=== PATIENT | female | born 1945 | race Caucasian/White ===

== ENCOUNTER → 2019-04-05 | Outpatient (CLI) | payer MEDICARE, BC ==
--- NOTE | 2019-04-05 16:07 | BD ---
EXAMINATION TYPE: Axial Bone Density DATE OF EXAM: 04/05/2019 COMPARISON: 2014 CLINICAL HISTORY: Z 78.0 Height: 62.50 Weight: 120 FRAX RISK QUESTIONS: Alcohol (3 or more units per day): no Family History (Parent hip fracture): no Glucocorticoids (More than 3mos): no (Ex: prednisone, prednisolone, methylprednisolone, dexamethasone, and hydrocortisone). History of Fracture in Adulthood: yes, ankle Secondary Osteoporosis: 1. Type 1 Diabetes: no 2. Hyperthyroidism: no 3. Menopause before 45: YES 4. Malnutrition: no 5. Chronic liver disease: no Rheumatoid Arthritis: no Current Tobacco Use: no RISK FACTORS HISTORY OF: Family History of Osteoporosis: not to knowledge of patient Active: yes Diet low in dairy products/other sources of calcium: no Postmenopausal woman: yes Take estrogen and/or progesterone medications: no Lost more than 2 inches in height since high school: no Frequent falls: no Poor Health: no Hyperparathyroidism: no Adrenal Insufficiency: no MEDICATIONS: Prednisone or other steroids: no Thyroid Medications: no Osteoporosis Medications: no Additional Medications: calcium & Vitamin D Additional History: low blood sugar EXAM MEASUREMENTS: Bone mineral densitometry was performed using the [employer] System. Bone mineral density as measured about the Lumbar spine is: ----- L1-L4(G/cm2): 1.105 T Score Values are as follows: ----- L2: 0.2 ----- L3: -0.1 ----- L4: -1.8 ----- L1-L4: -0.6 Bone mineral density has: Increased 5.8% since study of: 09/19/2014 Bone mineral density about the R hip (g/cm2): 0.775 Bone mineral density about the L hip (g/cm2): 0.792 T Score values are as follows: -----R Neck: -1.9 -----L Neck: -1.8 -----R Total: -2.1 -----L Total: -1.6 Bone mineral density has: Decreased -1.2% since study of: 09/19/2014 IMPRESSION: Osteopenia (T Score between -2.5 and -1). There is slightly increased risk of fracture and the patient may be considered for treatment. Re-Screen 2-5 years. NOTE: T-SCORE=SD OF THE YOUNG ADULT MEAN.
--- NOTE | 2019-04-10 09:53 | MM ---
Reason for exam: screening (asymptomatic). Last mammogram was performed 4 years and 7 months ago. History: Patient is postmenopausal. Benign excisional biopsy of the left breast, 2000. Physical Findings: A clinical breast exam by your physician is recommended on an annual basis and results should be correlated with mammographic findings. MG Screening Mammo w CAD Bilateral CC and MLO view(s) were taken. Prior study comparison: September 19, 2014, bilateral MG screening mammo w CAD. April 23, 2013, bilateral digital screening mammo w/CAD. The breast tissue is heterogeneously dense. This may lower the sensitivity of mammography. No significant changes when compared with prior studies. ASSESSMENT: Negative, BI-RAD 1 RECOMMENDATION: Routine screening mammogram of both breasts in 1 year.
== END | disposition home or self-care (01) ==
LOC: RADMAMWWP 13:39
PROVIDERS: ATTEND Family Medicine
DX: Z12.31 Encounter for screening mammogram for malignant neoplasm of breast (principal); M85.80 Other specified disorders of bone density and structure, unspecified site; Z78.0 Asymptomatic menopausal state
CPT/HCPCS: 77067; 77080

== ENCOUNTER 2019-06-21 02:07 | Observation (INO) | payer BC, MEDICARE ==
[2019-06-21 03:19] LABS: Basophils % (A) 1 %; Eosinophils # (A) 0.1 k/uL (0-0.7); Eosinophils % (A) 2 %; HCT 40.1 % (34.0-46.0); HGB 13.6 gm/dL (11.4-16.0); Lymphocytes # (A) 1.5 k/uL (1.0-4.8); Lymphocytes % (A) 32 %; MCHC 33.8 g/dL (31.0-37.0); MCV 85.6 fL (80.0-100.0); Mean Platelet Volume 6.2; Monocytes # (A) 0.3 k/uL (0-1.0); Monocytes % (A) 6 %; Neutrophils # (A) 2.6 k/uL (1.3-7.7); Neutrophils % (A) 57 %; Platelet Count 188 k/uL (150-450); RBC 4.68 m/uL (3.80-5.40); RDW 12.3 % (11.5-15.5); WBC 4.6 k/uL (3.8-10.6)
--- NOTE | 2019-06-21 03:19 | XR ---
EXAMINATION TYPE: XR chest 2V DATE OF EXAM: 06/21/2019 COMPARISON: 05/30/2016 HISTORY: Chest pain TECHNIQUE: Frontal and lateral views of the chest are obtained. FINDINGS: Heart and mediastinum are within normal limits. Lungs are clear. Diaphragm is normal. Ther e are chest leads. Bony thorax is intact. IMPRESSION: No active cardiopulmonary disease. No change.
[2019-06-21 03:29] LABS: INR 0.9 (<1.2); Partial Thromboplastin Time 23.7 sec (22.0-30.0); Prothrombin Time 10.2 sec (9.0-12.0)
--- NOTE | 2019-06-21 03:35 | ED ---
Chest Pain HPI - General Chief Complaint: Chest Pain Stated Complaint: High BP Time Seen by Provider: 06/21/19 02:26 Source: patient Mode of arrival: ambulatory Limitations: no limitations - History of Present Illness Initial Comments: Saundra is a 74-year-old female who presents the ER today for evaluation of burning retrosternal chest discomfort. Patient reports this is been coming and going in waves, this burning discomfort radiates to her bilateral shoulders. He got some mild shortness of breath and chills but denies any fevers nausea or vomiting. She reports these episodes happen at rest without provocation. They resolve spontaneously. She reports she just feels like there is a burning or pressure-like discomfort in her chest that she's having trouble describing. She reports she's never experienced anything like this in the past. Patient does have a history of GERD and states that this discomfort is nothing like acid reflux. - Related Data Home Medications Medication Instructions Recorded Confirmed Ascorbic Acid [Vitamin C] 500 mg PO DAILY 05/30/16 05/30/16 Biotin 5 mg PO HS 05/30/16 05/30/16 Calcium Carbonate [Calcium] 600 mg PO BID 05/30/16 05/30/16 Cholecalciferol [Vitamin D3] 1 tab PO HS 05/30/16 05/30/16 Glucosam/Simone-Msm1/C/Coleman/Bosw 1 tab PO DAILY 05/30/16 05/30/16 [Glucosamine-Chondroitin Tablet] Multivitamins, Thera [Multivitamin] 1 tab PO DAILY 05/30/16 05/30/16 Allergies Allergy/AdvReac Type Severity Reaction Status Date / Time No Known Allergies Allergy Verified 05/30/16 11:52 Review of Systems ROS Statement: Those systems with pertinent positive or pertinent negative responses have been documented in the HPI. ROS Other: All systems not noted in ROS Statement are negative. Past Medical History Past Medical History: Hypertension Additional Past Medical History / Comment(s): MVP,Osteoparosis, hypoglycemia. History of Any Multi-Drug Resistant Organisms: None Reported Past Surgical History: Orthopedic Surgery Additional Past Surgical History / Comment(s): mortons neuroma bilateral feet. Past Psychological History: No Psychological Hx Reported Smoking Status: Never smoker Past Alcohol Use History: Occasional Past Drug Use History: None Reported General Exam - General Exam Comments Initial Comments: Physical Exam GENERAL: Patient is well-developed and well-nourished. Patient is nontoxic and well- hydrated and is in no distress. HENT: Normocephalic, Atraumatic. EYES: PERRL, EOMI PULMONARY: Unlabored respirations. No audible rales rhonchi or wheezing was noted. CARDIOVASCULAR: There is a regular rate and rhythm without any murmurs gallops or rubs. ABDOMEN: Soft and nontender with normal bowel sounds. SKIN: Skin is clear with no lesions or rashes and otherwise unremarkable. : Deferred NEUROLOGIC: Patient is alert and oriented x3. Moving all extremities spontaneously MUSCULOSKELETAL: Normal extremities with adequate strength and full range of motion. No lower extremity swelling or edema. No calf tenderness. PSYCHIATRIC: Normal psychiatric evaluation. Limitations: no limitations Course Vital Signs 06/21/19 06/21/19 02:12 03:16 Temperature 97.9 F Pulse Rate 71 62 Respiratory 18 18 Rate Blood Pressure 168/90 165/90 O2 Sat by Pulse 98 96 Oximetry Chest Pain MDM - MDM KG was obtained to evaluate for chest pain, EKG was obtained at 2:27 AM, rate is 66 rhythm is sinus there is normal axis, there are normal intervals, AL 152, QRS 92, QTc is 417. There are no acute ST elevations or depressions, there is significant movement artifact in the lateral leads but no evidence of acute ischemia or infarction. The patient was seen and evaluated upon arrival emergency department. A 74-year-old female with vague chest discomfort radiating to the bilateral shoulders. This is concerning for cardiac etiology. Initial EKG was nonischemic, chest x-ray was unremarkable and labs were initially unremarkable however patient's continues to have episodes of discomfort. Given the patient's advanced age I do feel she'll benefit from further evaluation by cardiology. Patient initially prefer discharge home however family encouraged her to stay for the day and patient agreed to be admitted for further ACS workup. Disposition Clinical Impression: Chest pain Disposition: ADMITTED IP TO THIS HOSP Condition: Stable Is patient prescribed a controlled substance at d/c from ED?: No
[2019-06-21 03:39] LABS: ALT 28 U/L (9-52); AST 33 U/L (14-36); African American GFR (CKD) >90 (>60 ml/min/1.73 sqM); Albumin 4.2 g/dL (3.5-5.0); Alkaline Phosphatase 47 U/L (38-126); Anion Gap 7 mmol/L; Blood Urea Nitrogen 18 mg/dL (7-17); Calcium 9.3 mg/dL (8.4-10.2); Carbon Dioxide 24 mmol/L (22-30); Chloride 106 mmol/L (98-107); Glucose 99 mg/dL (74-99); Magnesium 1.9 mg/dL (1.6-2.3); Non-African American GFR(CKD) 88 (>60 ml/min/1.73 sqM); Sodium 137 mmol/L (137-145); Total Bilirubin 0.5 mg/dL (0.2-1.3); Total Protein 7.1 g/dL (6.3-8.2)
[2019-06-21] MEDS ORDERED: NITROGLYCERIN SL TABS 0.4 MG TAB SUBLINGUAL PRN (05:09)
--- NOTE | 2019-06-21 08:19 | P.CRDCN ---
History of Present Illness Consult date: 06/21/19 Chief complaint: chest pain History of present illness: This is a pleasant 74-year-old female patient with no significant past medical history presented to the emergency room complaining of chest discomfort. The patient was in her usual state of health yesterday evening when she was sitting in bed and started experiencing initially what she described "numbness feeling" in the epigastric area and radiated to her chest. No discomfort in the arms or neck or shoulders. No sicca symptoms of shortness of breath, dizziness, sweating, heart racing or fluttering or syncope. She did have 2 episodes of symptoms and H episode lasted only for a few seconds. She noticed lately that her blood pressure at home was elevated and yesterday she checked it and was more than 200 mmHg systolic. In the hospital her pressure has been high with average systolic pressure around 150-160 mmHg. She is not on any blood pressure medications. She stated that she does not like to take any medications. She has no diabetes or coronary artery disease. The patient stated that she was seen in the past in the office by Dr. Lyman and the stress test was performed but she does not recall when. During this admission the EKG showed sinus rhythm without any ischemic ST or T-wave abnormalities. The first set of troponin came in to be unremarkable and there is 2 more sets in process to be done. The chest x-ray showed no acute abnormalities. The patient has been chest discomfort free during her hospitalization. She stated that the only new thing lately that she was started on Celexa. Past Medical History Past Medical History: Hypertension Additional Past Medical History / Comment(s): MVP,Osteoparosis, hypoglycemia. History of Any Multi-Drug Resistant Organisms: None Reported Past Surgical History: Orthopedic Surgery Additional Past Surgical History / Comment(s): mortons neuroma bilateral feet. Past Psychological History: No Psychological Hx Reported Smoking Status: Never smoker Past Alcohol Use History: Occasional Past Drug Use History: None Reported Medications and Allergies Home Medications Medication Instructions Recorded Confirmed Type Ascorbic Acid [Vitamin C] 500 mg PO DAILY 05/30/16 05/30/16 History Biotin 5 mg PO HS 05/30/16 05/30/16 History Calcium Carbonate [Calcium] 600 mg PO BID 05/30/16 05/30/16 History Cholecalciferol [Vitamin D3] 1 tab PO HS 05/30/16 05/30/16 History Glucosam/Simone-Msm1/C/Coleman/Bosw 1 tab PO DAILY 05/30/16 05/30/16 History [Glucosamine-Chondroitin Tablet] Multivitamins, Thera [Multivitamin] 1 tab PO DAILY 05/30/16 05/30/16 History Allergies Allergy/AdvReac Type Severity Reaction Status Date / Time No Known Allergies Allergy Verified 05/30/16 11:52 Physical Exam Vitals: Vital Signs Temp Pulse Resp BP Pulse Ox 06/21/19 03:16 62 18 165/90 96 06/21/19 02:12 97.9 F 71 18 168/90 98 Intake and Output 06/20/19 06/21/19 06/21/19 22:59 06:59 14:59 Other: Weight 54.431 kg - Constitutional General appearance: no acute distress - Respiratory Respiratory: bilateral: CTA - Cardiovascular Rhythm: regular Heart sounds: normal: S1, S2 Results 06/21/19 02:20 06/21/19 02:20 Cardiac Enzymes 06/21/19 06/21/19 Range/Units 02:20 02:20 AST 33 (14-36) U/L Troponin I <0.012 (0.000-0.034) ng/mL Coagulation 06/21/19 Range/Units 02:20 PT 10.2 (9.0-12.0) sec APTT 23.7 (22.0-30.0) sec CBC 06/21/19 Range/Units 02:20 WBC 4.6 (3.8-10.6) k/uL RBC 4.68 (3.80-5.40) m/uL Hgb 13.6 (11.4-16.0) gm/dL Hct 40.1 (34.0-46.0) % Plt Count 188 (150-450) k/uL Comprehensive Metabolic Panel 06/21/19 Range/Units 02:20 Sodium 137 (137-145) mmol/L Potassium 4.0 (3.5-5.1) mmol/L Chloride 106 (98-107) mmol/L Carbon Dioxide 24 (22-30) mmol/L BUN 18 H (7-17) mg/dL Creatinine 0.67 (0.52-1.04) mg/dL Glucose 99 (74-99) mg/dL Calcium 9.3 (8.4-10.2) mg/dL AST 33 (14-36) U/L ALT 28 (9-52) U/L Alkaline Phosphatase 47 (38-126) U/L Total Protein 7.1 (6.3-8.2) g/dL Albumin 4.2 (3.5-5.0) g/dL Current Medications Generic Name Dose Route Start Last Admin Trade Name Freq PRN Reason Stop Dose Admin Aspirin 325 mg 06/22/19 09:00 Aspirin PO DAILY TOSHIA Nitroglycerin 0.4 mg 06/21/19 05:09 Nitrostat SUBLINGUAL Q5M PRN Chest Pain Intake and Output 06/20/19 06/21/19 06/21/19 22:59 06:59 14:59 Other: Weight 54.431 kg 06/21/19 02:20 06/21/19 02:20 Assessment and Plan Assessment: Assessment #1 atypical chest pain/epigastric discomfort #2 underlying hypertension Plan #1 acute coronary event to be ruled out #2 we'll follow-up with the serial cardiac enzymes #3 start the patient on Norvasc to treat the blood pressure #4 obtain a copy of the previous medical records #5 possible discharge home if the enzymes are unremarkable and the patient continues to be symptoms free after she ambulates. The patient would like to be discharged home. Thank you for allowing us participate in her care
[2019-06-21] MEDS ORDERED: amLODIPine 2.5 MG TAB PO SCH (09:00)
[2019-06-21 11:24] VITALS: PULSE 67
[2019-06-21 13:12] VITALS: BP 149/79; RESP 16; TEMP 98.4
[2019-06-21] MEDS ORDERED: PANTOPRAZOLE 40 MG TABLET PO STA (13:41)
--- NOTE | 2019-06-21 18:24 | P.HPIM ---
History of Present Illness H&P Date: 06/21/19 Chief Complaint: Burning chest History of presenting complaint: This is a very pleasant 74-year-old patient of Dr. Renteria. Chronic stable medical conditions include watchful valve prolapse, osteoarthritis, depression. Patient recently started on Celexa 10 mg a day through her PCP. Patient is rather reluctant to take any medications. Patient's son is at the bedside. She does get heartburn. Sometimes just drinking water. Yesterday she felt a burning sensation in the chest which went up to her throat and both the shoulders. And should couple of these episodes. There was no associated shortness breath dizziness lightheadedness perspiration or tiredness. Decided to present to the ER. They did take a blood pressure at home at that time it was systolic 212 by diastolic 112. She was rather anxious. She has seen Dr. Lyman in the past. She says her last 2 appointments were canceled. She is not sure about the reason. Patient otherwise rather active and able to get around. No prior cardiac history Review of systems: GEN.: None EYES: None HEENT: None NECK: None RESPIRATORY: None CARDIOVASCULAR: As above GASTROINTESTINAL: As above GENITOURINARY: None MUSCULOSKELETAL: Joint pains LYMPHATICS: None HEMATOLOGICAL: None PSYCHIATRY: Depression NEUROLOGICAL: None. Past medical history: GERD, mitral valve prolapse, osteoporosis, osteoarthritis, possible TIAs on the clinical stroke, hypoglycemia Social history: Patient's grandson lives with her. Does not smoke or drink alcohol. Does clean houses. Physical examination: VITAL SIGNS: 97.9, 71, 18, 168/90, 98% on room air upon presentation GENERAL: BMI 21.9, sitting up but anxious. EYES: Pupils equal. Conjunctiva normal. HEENT: External appearance of nose and ears normal, oral cavity grossly normal. NECK: JVD not raised; masses not palpable. HEART: First and second heart sounds are normal; no edema. LUNGS: Respiratory rate normal; clear to auscultation. ABDOMEN: Soft, nontender, liver spleen not palpable, no masses palpable. PSYCH: [Alert and oriented x3; mood and affect slightly anxious. NEUROLOGICAL: Cranial nerves grossly intact; no facial asymmetry, power and sensation grossly intact. LYMPHATICS: No lymph nodes palpable in the axilla and neck MUSCULOSKELETAL: Evidence of OA in the hands INVESTIGATIONS, reviewed in the clinical context: White count 4.6 hemoglobin 13.6 platelets 188 potassium 4 creatinine 0.67 Troponin I 2 less than 0.012 ProBNP 86 EKG tracing personally reviewed by me-maybe ST segment changes in lateral leads Chest x-ray film personally reviewed by me-lung rojas clear Assessment: -This patient presents with episode of burning sensation in the chest going up her throat. Patient has underlying reflux which is somewhat uncontrolled. Stil l need to rule out a cardiac cause given some EKG abnormalities. -GERD uncontrolled -Mitral valve prolapse -primary osteoarthritis -Depression otherwise specified -Essential hypertension uncontrolled Plan: Home medications resumed. PPI will be added. Cardiology was consulted. Troponins have been negative. Patient will need outpatient EGD. Past Medical History Past Medical History: GERD/Reflux Additional Past Medical History / Comment(s): MVP, osteoporosis, generalized arthritis, possible TIAs or lacuner stroke per past medical record, hypoglycemia. History of Any Multi-Drug Resistant Organisms: None Reported Past Surgical History: Orthopedic Surgery Additional Past Surgical History / Comment(s): EGD, colonoscopy, mortons neuroma bilateral feet, bilateral cataract removals/lens implants. Past Anesthesia/Blood Transfusion Reactions: No Reported Reaction Smoking Status: Never smoker - Past Family History Father Family Medical History: Asthma, COPD, Diabetes Mellitus Additional Family Medical History / Comment(s): Bronchitis. Father at the age of 80yrs. He was a smoker. Mother Family Medical History: Dementia Additional Family Medical History / Comment(s): Mother of dementia at the age of 86yrs. Medications and Allergies Home Medications Medication Instructions Recorded Confirmed Type Ascorbic Acid [Vitamin C] 500 mg PO DAILY 05/30/16 06/21/19 History Calcium Carbonate [Calcium] 1,200 mg PO BID 05/30/16 06/21/19 History Cholecalciferol [Vitamin D3] 1 tab PO QAM 05/30/16 06/21/19 History Glucosam/Simone-Msm1/C/Coleman/Bosw 1 tab PO DAILY 05/30/16 06/21/19 History [Glucosamine-Chondroitin Tablet] Multivitamins, Thera [Multivitamin] 1 tab PO DAILY 05/30/16 06/21/19 History Aspirin 81 mg PO DAILY #30 chewable 06/21/19 Rx Citalopram Hydrobromide [CeleXA] 10 mg PO DIRECTED 06/21/19 06/21/19 History Omeprazole [PriLOSEC] 20 mg PO AC-BID #60 cap 06/21/19 Rx Turmeric Root Extract [Turmeric] 1,053 mg PO HS 06/21/19 06/21/19 History Vit C/E/Zn/Coppr/Lutein/Zeaxan 2 cap PO BID 06/21/19 06/21/19 History [Preservision Areds 2 Softgel] amLODIPine [Norvasc] 2.5 mg PO DAILY #30 tab 06/21/19 Rx Allergies Allergy/AdvReac Type Severity Reaction Status Date / Time No Known Allergies Allergy Verified 06/21/19 08:54 Physical Exam Vitals: Vital Signs Temp Pulse Resp BP Pulse Ox 06/21/19 03:16 62 18 165/90 96 06/21/19 02:12 97.9 F 71 18 168/90 98 Intake and Output 06/20/19 06/21/19 06/21/19 22:59 06:59 14:59 Other: # Voids 1 Weight 54.431 kg Results CBC & Chem 7: 06/21/19 02:20 06/21/19 02:20 Labs: Abnormal Lab Results - Last 24 Hours (Table) 06/21/19 Range/Units 02:20 BUN 18 H (7-17) mg/dL Thrombosis Risk Factor Assmnt - Choose All That Apply Any of the Below Risk Factors Present?: Yes Other Risk Factors: Yes Each Risk Factor Represents 2 Points: Age 61-74 years Other congenital or acquired thrombophilia - If yes, enter type in comment: No Thrombosis Risk Factor Assessment Total Risk Factor Score: 2 Thrombosis Risk Factor Assessment Level: Low Risk
--- NOTE | 2019-06-21 18:35 | P.DS ---
Providers Date of admission: 06/21/19 05:09 Expected date of discharge: 06/21/19 Attending physician: Dipak Mckinley Consults: 06/21/19 05:09 Consult Physician Urgent Consulting Provider: [facility] Consult Reason/Comments: chest pain Do you want consulting provider notified?: Yes, Notify in am Primary care physician: Charly Renteria [facility] Course: Chief Complaint: Burning chest Hospital course: This is a very pleasant 74-year-old patient of Dr. Renteria. Chronic stable medical conditions include watchful valve prolapse, osteoarthritis, depression. Patient recently started on Celexa 10 mg a day through her PCP. Patient is rather reluctant to take any medications. Patient's son is at the bedside. She does get heartburn. Sometimes just drinking water. Yesterday she felt a burning sensation in the chest which went up to her throat and both the shoulders. And should couple of these episodes. There was no associated sh ortness breath dizziness lightheadedness perspiration or tiredness. Decided to present to the ER. They did take a blood pressure at home at that time it was systolic 212 by diastolic 112. She was rather anxious. She has seen Dr. Lyman in the past. She says her last 2 appointments were canceled. She is not sure about the reason. Patient otherwise rather active and able to get around. No prior cardiac history Patient was seen by Dr. Ace from cardiology. Okay to be discharged. I did tell the patient to follow up with GI and get EKG done. PPIs were added. I also told her to see Dr. Lyman and get a stress test as an outpatient. Questions were answered. blood pressure was running high amlodipine was added. Consultation: Dr. Ace from cardiology Physical examination: VITAL SIGNS: 98.4, 57, 14, 149/79, 97% room air GENERAL: BMI 21.9, sitting up but anxious. EYES: Pupils equal. Conjunctiva normal. HEENT: External appearance of nose and ears normal, oral cavity grossly normal. NECK: JVD not raised; masses not palpable. HEART: First and second heart sounds are normal; no edema. LUNGS: Respiratory rate normal; clear to auscultation. ABDOMEN: Soft, nontender, liver spleen not palpable, no masses palpable. PSYCH: [Alert and oriented x3; mood and affect slightly anxious. MUSCULOSKELETAL: Evidence of OA in the hands INVESTIGATIONS, reviewed in the clinical context: White count 4.6 hemoglobin 13.6 platelets 188 potassium 4 creatinine 0.67 Troponin I 2 less than 0.012 ProBNP 86 EKG tracing personally reviewed by me-reginald ST segment changes in lateral leads Chest x-ray film personally reviewed by me-lung rojas clear Assessment: -Anterior chest wall burning sensation/pain possibly reflux exacerbation.. -GERD uncontrolled -Mitral valve prolapse -primary osteoarthritis -Depression otherwise specified -Essential hypertension uncontrolled Disposition: AK home. Outpatient EGD. Outpatient stress test with cardiology. Patient Condition at Discharge: Stable Plan - Discharge Summary Discharge Rx Participant: No New Discharge Prescriptions: New Aspirin 81 mg PO DAILY #30 chewable amLODIPine [Norvasc] 2.5 mg PO DAILY #30 tab Omeprazole [PriLOSEC] 20 mg PO AC-BID #60 cap Continue Glucosam/Simone-Msm1/C/Coleman/Bosw [Glucosamine-Chondroitin Tablet] 1 tab PO DAILY Calcium Carbonate [Calcium] 1,200 mg PO BID Citalopram Hydrobromide [CeleXA] 10 mg PO DIRECTED No Action Multivitamins, Thera [Multivitamin] 1 tab PO DAILY Cholecalciferol [Vitamin D3] 1 tab PO QAM Ascorbic Acid [Vitamin C] 500 mg PO DAILY Vit C/E/Zn/Coppr/Lutein/Zeaxan [Preservision Areds 2 Softgel] 2 cap PO BID Turmeric Root Extract [Turmeric] 1,053 mg PO HS Discharge Medication List Ascorbic Acid [Vitamin C] 500 mg PO DAILY 05/30/16 [History] Calcium Carbonate [Calcium] 1,200 mg PO BID 05/30/16 [History] Cholecalciferol [Vitamin D3] 1 tab PO QAM 05/30/16 [History] Glucosam/Simone-Msm1/C/Coleman/Bosw [Glucosamine-Chondroitin Tablet] 1 tab PO DAILY 05/30/16 [History] Multivitamins, Thera [Multivitamin] 1 tab PO DAILY 05/30/16 [History] Aspirin 81 mg PO DAILY #30 chewable 06/21/19 [Rx] Citalopram Hydrobromide [CeleXA] 10 mg PO DIRECTED 06/21/19 [History] Omeprazole [PriLOSEC] 20 mg PO AC-BID #60 cap 06/21/19 [Rx] Turmeric Root Extract [Turmeric] 1,053 mg PO HS 06/21/19 [History] Vit C/E/Zn/Coppr/Lutein/Zeaxan [Preservision Areds 2 Softgel] 2 cap PO BID 06/21/19 [History] amLODIPine [Norvasc] 2.5 mg PO DAILY #30 tab 06/21/19 [Rx] Follow up Appointment(s)/Referral(s): Bethel Lyman MD [STAFF PHYSICIAN] - 07/10/19 10:15 am (With [facility].) Hola Renteria MD [Primary Care Provider] - 07/02/19 1:40 pm Nella Martinez MD [STAFF PHYSICIAN] - 06/29/19 (EGD assessing ) Patient Instructions/Handouts: Chest Pain (DC), DASH Eating Plan (DC) Discharge Disposition: HOME SELF-CARE
[2019-06-22] MEDS ORDERED: ASPIRIN 325 MG TAB PO SCH (09:00)
== END 2019-06-21 15:23 | disposition home or self-care (01) ==
LOC: EC 02:07 → 3SCARD 05:09
PROVIDERS: ADMIT Hospitalist; ATTEND Hospitalist
DX: R07.89 Other chest pain (principal); R68.83 Chills (without fever); R06.02 Shortness of breath; F41.9 Anxiety disorder, unspecified; K21.9 Gastro-esophageal reflux disease without esophagitis; I34.1 Nonrheumatic mitral (valve) prolapse; F32.9 Major depressive disorder, single episode, unspecified; I10 Essential (primary) hypertension; M19.042 Primary osteoarthritis, left hand; M19.041 Primary osteoarthritis, right hand; M81.0 Age-related osteoporosis without current pathological fracture; Z79.82 Long term (current) use of aspirin; Z79.899 Other long term (current) drug therapy; Z96.1 Presence of intraocular lens; Z83.3 Family history of diabetes mellitus; Z82.5 Family history of asthma and other chronic lower respiratory diseases; Z81.8 Family history of other mental and behavioral disorders
CPT/HCPCS: 99285; 36415; 93005; 83880; 80053; 83735; 84484; 85025; 85610; 85730; 71046; G0378

== ENCOUNTER 2019-06-26 16:04 | Observation (INO) | payer MEDICARE ==
[2019-06-26] MEDS ORDERED: SODIUM CHLORIDE 0.9% 1,000 ML IV STA (16:19)
--- NOTE | 2019-06-26 16:20 | ED ---
Chest Pain HPI - General Chief Complaint: Chest Pain Stated Complaint: CHEST PAIN Time Seen by Provider: 06/26/19 16:18 Source: patient, RN notes reviewed, old records reviewed Mode of arrival: wheelchair Limitations: no limitations - History of Present Illness Initial Comments: This is a 74-year-old female the ER for recurrent chest pain has been under left breast. Patient has persistent chest and her left breast discharged after chest pain observation 3 days ago. Patient is to follow-up with her supervisor [employer] she had no significant cardiac testing here in the ER sent from [facility]. Patient states the pain had resolved but came back today and was worse than the prior episode. Otherwise no travel history no sick contacts no fevers no history of PE no trauma. MD Complaint: chest pain -: days(s) Onset: during rest, during exertion Pain Location: left chest Pain Radiation: other (left breast) Severity: moderate Severity scale (1-10): 4 Quality: tightness, heaviness Consistency: intermittent, now resolved Improves With: nothing Worsens With: nothing Context: other (recent admission for same) Anginal Symptoms: diaphoresis Other Symptoms: palpitations Treatments Prior to Arrival: none - Related Data Home Medications Medication Instructions Recorded Confirmed Ascorbic Acid [Vitamin C] 500 mg PO DAILY 05/30/16 06/26/19 Calcium Carbonate [Calcium] 1,200 mg PO HS 05/30/16 06/26/19 Cholecalciferol [Vitamin D3] 1,000 unit PO DAILY 05/30/16 06/26/19 Glucosam/Simone-Msm1/C/Coleman/Bosw 1 tab PO DAILY 05/30/16 06/26/19 [Glucosamine-Chondroitin Tablet] Citalopram Hydrobromide [CeleXA] See Taper PO DAILY 06/21/19 06/26/19 Turmeric Root Extract [Turmeric] 1,053 mg PO HS 06/21/19 06/26/19 Vit C/E/Zn/Coppr/Lutein/Zeaxan 1 cap PO BID 06/21/19 06/26/19 [Preservision Areds 2 Softgel] Previous Rx's Medication Instructions Recorded Aspirin 81 mg PO DAILY #30 chewable 06/21/19 Omeprazole [PriLOSEC] 20 mg PO AC-BID #60 cap 06/21/19 amLODIPine [Norvasc] 2.5 mg PO DAILY #30 tab 06/21/19 Allergies Allergy/AdvReac Type Severity Reaction Status Date / Time No Known Allergies Allergy Verified 06/26/19 17:25 Review of Systems ROS Statement: Those systems with pertinent positive or pertinent negative responses have been documented in the HPI. ROS Other: All systems not noted in ROS Statement are negative. EKG Findings - EKG Comments: EKG Findings:: EKG shows sinus rhythm rate of 74, [place] 142, QRS 70, QTc 4:30 Past Medical History Past Medical History: GERD/Reflux Additional Past Medical History / Comment(s): MVP, osteoporosis, generalized arthritis, possible TIAs or lacuner stroke per past medical record, hypoglycemia. History of Any Multi-Drug Resistant Organisms: None Reported Past Surgical History: Orthopedic Surgery Additional Past Surgical History / Comment(s): EGD, colonoscopy, mortons neuroma bilateral feet, bilateral cataract removals/lens implants. Past Anesthesia/Blood Transfusion Reactions: No Reported Reaction Past Psychological History: Depression Smoking Status: Never smoker - Past Family History Father Family Medical History: Asthma, COPD, Diabetes Mellitus Additional Family Medical History / Comment(s): Bronchitis. Father at the age of 80yrs. He was a smoker. Mother Family Medical History: Dementia Additional Family Medical History / Comment(s): Mother of dementia at the age of 86yrs. General Exam Limitations: no limitations General appearance: alert, in no apparent distress Head exam: Present: atraumatic, normocephalic, normal inspection Eye exam: Present: normal appearance, PERRL, EOMI. Absent: scleral icterus, conjunctival injection, periorbital swelling ENT exam: Present: normal exam, mucous membranes moist Neck exam: Present: normal inspection. Absent: tenderness, meningismus, lymphadenopathy Respiratory exam: Present: normal lung sounds bilaterally. Absent: respiratory distress, wheezes, rales, rhonchi, stridor Cardiovascular Exam: Present: regular rate, normal rhythm, normal heart sounds. Absent: systolic murmur, diastolic murmur, rubs, gallop, clicks GI/Abdominal exam: Present: soft, normal bowel sounds. Absent: distended, tenderness, guarding, rebound, rigid Extremities exam: Present: normal inspection, full ROM, normal capillary refill. Absent: tenderness, pedal edema, joint swelling, calf tenderness Back exam: Present: normal inspection Neurological exam: Present: alert, oriented X3, CN II-XII intact Psychiatric exam: Present: normal affect, normal mood Skin exam: Present: warm, dry, intact, normal color. Absent: rash Course Vital Signs 06/26/19 06/26/19 06/26/19 16:06 17:03 17:50 Temperature 98.2 F 98.7 F Pulse Rate 79 60 63 Respiratory 18 18 18 Rate Blood Pressure 197/113 155/92 151/87 O2 Sat by Pulse 99 99 96 Oximetry 06/26/19 20:10 Temperature Pulse Rate 64 Respiratory 18 Rate Blood Pressure 116/84 O2 Sat by Pulse 95 Oximetry - Reevaluation(s) Reevaluation #1: 06/26/19 17:36 medical record is reviewed as well as recent hospitilization Reevaluation #2: 06/26/19 18:44 Patient still with episodic chest pain Reevaluation #3: 06/26/19 20:35 Patient having recurrent chest pain here in the ER spoke with patient she does want to stay in - Consultations Consultation #1: Spoke with Dr. Bhardwaj who is okay for admission Chest Pain MDM - MDM 74 female the ER for evaluation of chest pain left-sided chest pain recent admission for left-sided chest pain. Patient's pain is recurrent, no shortness of breath. Disposition Clinical Impression: Chest pain Disposition: ADMITTED IP TO THIS HOSP Condition: Fair Instructions (If sedation given, give patient instructions): Chest Pain (ED) Is patient prescribed a controlled substance at d/c from ED?: No Referrals: Hola Renteria MD [Primary Care Provider] - 1-2 days
[2019-06-26 16:59] LABS: Basophils % (A) 1 %; Eosinophils # (A) 0.1 k/uL (0-0.7); Eosinophils % (A) 2 %; HCT 42.6 % (34.0-46.0); Lymphocytes # (A) 1.5 k/uL (1.0-4.8); Lymphocytes % (A) 32 %; MCV 84.8 fL (80.0-100.0); Monocytes # (A) 0.2 k/uL (0-1.0); Monocytes % (A) 5 %; Neutrophils # (A) 2.7 k/uL (1.3-7.7); Neutrophils % (A) 58 %; Platelet Count 217 k/uL (150-450); RBC 5.02 m/uL (3.80-5.40); RDW 12.3 % (11.5-15.5); WBC 4.6 k/uL (3.8-10.6)
--- NOTE | 2019-06-26 17:04 | XR ---
EXAMINATION TYPE: XR chest 2V DATE OF EXAM: 06/26/2019 COMPARISON: 06/21/2019 HISTORY: Chest pain TECHNIQUE: Frontal and lateral views of the chest are obtained. FINDINGS: Heart and mediastinum are normal. Lungs are clear. Diaphragm is normal. Bony thorax appear s normal. IMPRESSION: Normal chest. No change.
[2019-06-26 17:08] LABS: ALT 27 U/L (9-52); AST 30 U/L (14-36); African American GFR (CKD) >90 (>60 ml/min/1.73 sqM); Albumin 4.5 g/dL (3.5-5.0); Alkaline Phosphatase 46 U/L (38-126); Anion Gap 8 mmol/L; Blood Urea Nitrogen 18 mg/dL (7-17); Calcium 10.1 mg/dL (8.4-10.2); Carbon Dioxide 25 mmol/L (22-30); Chloride 106 mmol/L (98-107); Glucose 102 mg/dL (74-99); Non-African American GFR(CKD) >90 (>60 ml/min/1.73 sqM); Partial Thromboplastin Time 23.4 sec (22.0-30.0); Potassium 3.9 mmol/L (3.5-5.1); Prothrombin Time 10.4 sec (9.0-12.0); Sodium 139 mmol/L (137-145); Total Bilirubin 0.3 mg/dL (0.2-1.3); Total Protein 7.4 g/dL (6.3-8.2)
--- NOTE | 2019-06-26 18:56 | CT ---
EXAMINATION TYPE: CT angio chest DATE OF EXAM: 06/26/2019 6:37 PM COMPARISON: None HISTORY: Left sided chest discomfort and episode of weakness. CT DLP: 207.5 mGycm Automated exposure control for dose reduction was used. CONTRAST: CTA scan of the thorax is performed with IV Contrast, patient injected with 100 mL of Isovue 370, pul monary embolism protocol. . There are 3-D post processed images. FINDINGS: The lungs are clear of infiltrate. There is no evidence of a pulmonary mass. There is no pleural effu yong. Heart size is normal. There is no pericardial effusion. There is minimal scarring at the lung apices. There is no mediastinal adenopathy. There are no hilar masses. There is normal contrast opacification of the pulmonary arteries. There are no filling defects. There is no sign of thoracic aortic aneurysm or dissection. Ascending aorta measures 3.3 cm. Bony thorax i s intact. IMPRESSION: NEGATIVE EXAM. NO EVIDENCE OF PULMONARY EMBOLISM.
[2019-06-26] MEDS ORDERED: NITROGLYCERIN SL TABS 0.4 MG TAB SUBLINGUAL PRN (20:33)
[2019-06-26] MEDS ORDERED: ASPIRIN 81 MG PO STA (20:33)
[2019-06-26 23:19] VITALS: BMI 21.0
[2019-06-26] MEDS ORDERED: HEPARIN SOD,PORK IN 0.45% NACL 25,000 UNIT in 0.45% NACL 1 250ML.BAG IV SCH (23:45)
[2019-06-26] MEDS ORDERED: HEPARIN SODIUM,PORCINE 5,000 UNIT/ML 1 ML VIAL IV PRN (23:53)
[2019-06-26] MEDS ORDERED: HEPARIN SODIUM,PORCINE 5,000 UNIT/ML 1 ML VIAL IV ONE (23:53)
[2019-06-27 06:57] LABS: Cholesterol 179 mg/dL (<200); HDL Cholesterol 79 mg/dL (40-60); LDL Cholesterol,Calculated 94 mg/dL (0-99); Triglycerides 30 mg/dL (<150)
--- NOTE | 2019-06-27 07:26 | P.HPIM ---
History of Present Illness This is a pleasant 74 years old female with past medical history of GERD, mitral valve prolapse, osteoporosis, generalized arthritis, possible TIA/stroke, depression. Presents because of chest pain. Patient was in the hospital last week when she was admitted for abdominal discomfort up to her neck as per patient however documentation states that she has burning discomfort on both shoulders. This time she was sitting in her rec liner and felt a pounding feeling her heart with pressure sensation and headache, she checked her blood pressure was 1 9070/110. Patient felt shaky and decided to come to emergency room. Also for 1 day she was complaining of from mild chest pain/pressure below her left breast and laterally that is exacerbated by deep breathing it was about 4-5/10 in severity that went away within a few seconds as per patient. She denies shortness of breath or coughing. No headache. No weakness or numbness. No urinary complaints or change in bladder habits. No diarrhea. No fever Patient never smoked. No alcohol or illicit drugs Vitas looks stable., Heart rate is on the low side at 54-64. Labs showing unremarkable CBC, BMP, liver enzymes, troponin is went up from less than 0.012 to 0.06 and then 0.02. EKG showing normal sinus rhythm at [address]-T changes and QTC of 413. Chest x-ray: No acute cardiopulmonary process. Chest CTA: No pulmonary embolism. No hilar masses On admission patient was started on heparin drip and given aspirin Review of Systems CONSTITUTIONAL: No fever, no malaise, no fatigue. HEENT: No recent visual problems or hearing problems. Denied any sore throat. CARDIOVASCULAR: No orthopnea, PND, no palpitations, no syncope. PULMONARY: No shortness of breath, no cough, no hemoptysis. GASTROINTESTINAL: No diarrhea, no nausea, no vomiting, no abdominal pain. Normoactive bowel sounds. NEUROLOGICAL: No headaches, no weakness, no numbness. HEMATOLOGICAL: Denies any bleeding or petechiae. GENITOURINARY: Denies any burning micturition, frequency, or urgency. MUSCULOSKELETAL/RHEUMATOLOGICAL: Denies any joint pain, swelling, or any muscle pain. ENDOCRINE: Denies any polyuria or polydipsia. Past Medical History Past Medical History: GERD/Reflux Additional Past Medical History / Comment(s): MVP, osteoporosis, generalized arthritis, possible TIAs or lacuner stroke per past medical record, hypoglycemia. History of Any Multi-Drug Resistant Organisms: None Reported Past Surgical History: Orthopedic Surgery Additional Past Surgical History / Comment(s): EGD, colonoscopy, mortons neuroma bilateral feet, bilateral cataract removals/lens implants. Past Anesthesia/Blood Transfusion Reactions: No Reported Reaction Past Psychological History: Depression Additional Psychological History / Comment(s): Pt has an adult grandson staying with her at this time. She is independent. Smoking Status: Never smoker Past Alcohol Use History: Rare Past Drug Use History: None Reported - Past Family History Father Family Medical History: Asthma, COPD, Diabetes Mellitus Additional Family Medical History / Comment(s): Bronchitis. Father at the age of 80yrs. He was a smoker. Mother Family Medical History: Dementia Additional Family Medical History / Comment(s): Mother of dementia at the age of 86yrs. Medications and Allergies Home Medications Medication Instructions Recorded Confirmed Type Ascorbic Acid [Vitamin C] 500 mg PO DAILY 05/30/16 06/26/19 History Calcium Carbonate [Calcium] 1,200 mg PO HS 05/30/16 06/26/19 History Cholecalciferol [Vitamin D3] 1,000 unit PO DAILY 05/30/16 06/26/19 History Glucosam/Simone-Msm1/C/Coleman/Bosw 1 tab PO DAILY 05/30/16 06/26/19 History [Glucosamine-Chondroitin Tablet] Aspirin 81 mg PO DAILY #30 chewable 06/21/19 06/26/19 Rx Citalopram Hydrobromide [CeleXA] See Taper PO DAILY 06/21/19 06/26/19 History Omeprazole [PriLOSEC] 20 mg PO AC-BID #60 cap 06/21/19 06/26/19 Rx Turmeric Root Extract [Turmeric] 1,053 mg PO HS 06/21/19 06/26/19 History Vit C/E/Zn/Coppr/Lutein/Zeaxan 1 cap PO BID 06/21/19 06/26/19 History [Preservision Areds 2 Softgel] amLODIPine [Norvasc] 2.5 mg PO DAILY #30 tab 06/21/19 06/26/19 Rx Allergies Allergy/AdvReac Type Severity Reaction Status Date / Time No Known Allergies Allergy Verified 06/26/19 17:25 Physical Exam Vitals: Vital Signs Temp Pulse Pulse Resp BP BP Pulse Ox 06/27/19 03:44 97.8 F 54 L 18 118/68 95 06/26/19 22:49 56 L 18 122/82 95 06/26/19 22:31 98 F 61 18 167/73 95 06/26/19 20:10 64 18 116/84 95 06/26/19 17:50 98.7 F 63 18 151/87 96 06/26/19 17:03 60 18 155/92 99 06/26/19 16:06 98.2 F 79 18 197/113 99 Intake and Output 06/26/19 06/27/19 06/27/19 22:59 06:59 14:59 Intake Total 284.418 Balance 284.418 Intake: Intake, IV Titration 44.418 Amount Heparin Sod,Pork in 0.45% 44.418 NaCl 25,000 unit In 0.45 % NaCl 1 250ml.bag @ 12 UNITS/KG/HR 6.532 mls/hr IV .Q24H [facility] Rx#: [id number] Oral 240 Other: Weight 54.431 kg 54.4 kg GENERAL: The patient is alert and oriented x3, not in any acute distress. Well developed, well nourished. HEENT: Pupils are round and equally reacting to light. EOMI. No scleral icterus. No conjunctival pallor. Normocephalic, atraumatic. No pharyngeal erythema. No thyromegaly. CARDIOVASCULAR: S1 and S2 present. No murmurs, rubs, or gallops. PULMONARY: Chest is clear to auscultation, no wheezing or crackles. ABDOMEN: Soft, nontender, nondistended, normoactive bowel sounds. No palpable organomegaly. MUSCULOSKELETAL: No joint swelling or deformity. EXTREMITIES: No cyanosis, clubbing, or pedal edema. NEUROLOGICAL: Gross neurological examination did not reveal any focal deficits. SKIN: No rashes. No petechiae Results CBC & Chem 7: 06/26/19 16:38 06/26/19 16:38 Labs: Abnormal Lab Results - Last 24 Hours (Table) 06/26/19 06/26/19 06/27/19 Range/Units 16:38 22:45 05:37 APTT (22.0-30.0) sec BUN 18 H (7-17) mg/dL Glucose 102 H (74-99) mg/dL Troponin I 0.069 H* (0.000-0.034) ng/mL HDL Cholesterol 79 H (40-60) mg/dL 06/27/19 Range/Units 05:37 APTT 151.3 H* (22.0-30.0) sec BUN (7-17) mg/dL Glucose (74-99) mg/dL Troponin I (0.000-0.034) ng/mL HDL Cholesterol (40-60) mg/dL Thrombosis Risk Factor Assmnt - Choose All That Apply Any of the Below Risk Factors Present?: Yes Each Risk Factor Represents 2 Points: Age 61-74 years Thrombosis Risk Factor Assessment Total Risk Factor Score: 2 Thrombosis Risk Factor Assessment Level: Low Risk Assessment and Plan Assessment: Non-STEMI GERD Hypertension Mitral valve prolapse Primary osteoarthritis Generalized arthritis History CVA/TIA History of depression, not an active issue Plan: this is a pleasant 75 years old female who presents with chest pain. Check troponins and EKG. Cardiology consult. Continue with aspirin and heparin drip Labs and medication were reviewed.. Continue same treatment. Continue with symptomatic treatment. Resume home medication. Monitor lytes and vitals. DVT and GI prophylaxis. Further recommendations of the clinical course of the patient DVT prophylaxis: Subcutaneous heparin GI Prophylaxis: Pepcid PT/OT: Pending Prognosis is guarded
--- NOTE | 2019-06-27 08:54 | P.CRDCN ---
History of Present Illness Consult date: 06/27/19 Chief complaint: Chest pain History of present illness: This is a pleasant 74-year-old female patient with a past medical history significant for hypertension presented to the hospital with a chest discomfort. The patient was admitted to the hospital week ago when she came in with chest discomfort and uncontrolled blood pressure. She never been diagnosed with hypertension in the past. At that point the patient was ruled out for acute coronary event and also was ruled out for PE and she was discharged home on Norvasc. Since then she has been monitoring the blood pressure at home which has been under good control. She was sitting in her recliner yesterday when she started experiencing discomfort in the chest. The patient had heart pain described the discomfort. She stated that she just did not feel good. The discomfort was associated with a fatigue feeling but no syncope, sweating, dizziness, or shortness of breath. When she presented to the hospital the blood pressure was elevated but I did review the blood pressure from home which showed good control. The blood pressure in the hospital also beside the one in the emergency room showed good blood pressure control. The first set of troponin came in to be normal and the second one came in to be slightly abnormal. The EKG showed sinus rhythm was nonspecific ST or T-wave abnormalities. She underwent a computed tomography scan of the chest which showed no PE. I did recommend the patient to undergo a heart catheterization to rule out severe underlying coronary artery disease. She does have hypertension and also she does have a very significant family history of coronary artery disease. Past Medical History Past Medical History: GERD/Reflux Additional Past Medical History / Comment(s): MVP, osteoporosis, generalized arthritis, possible TIAs or lacuner stroke per past medical record, hypoglyce dru. History of Any Multi-Drug Resistant Organisms: None Reported Past Surgical History: Orthopedic Surgery Additional Past Surgical History / Comment(s): EGD, colonoscopy, mortons neuroma bilateral feet, bilateral cataract removals/lens implants. Past Anesthesia/Blood Transfusion Reactions: No Reported Reaction Past Psychological History: Depression Additional Psychological History / Comment(s): Pt has an adult grandson staying with her at this time. She is independent. Smoking Status: Never smoker Past Alcohol Use History: Rare Past Drug Use History: None Reported - Past Family History Father Family Medical History: Asthma, COPD, Diabetes Mellitus Additional Family Medical History / Comment(s): Bronchitis. Father at the age of 80yrs. He was a smoker. Mother Family Medical History: Dementia Additional Family Medical History / Comment(s): Mother of dementia at the age of 86yrs. Medications and Allergies Home Medications Medication Instructions Recorded Confirmed Type Ascorbic Acid [Vitamin C] 500 mg PO DAILY 05/30/16 06/26/19 History Calcium Carbonate [Calcium] 1,200 mg PO HS 05/30/16 06/26/19 History Cholecalciferol [Vitamin D3] 1,000 unit PO DAILY 05/30/16 06/26/19 History Glucosam/Simone-Msm1/C/Coleman/Bosw 1 tab PO DAILY 05/30/16 06/26/19 History [Glucosamine-Chondroitin Tablet] Aspirin 81 mg PO DAILY #30 chewable 06/21/19 06/26/19 Rx Citalopram Hydrobromide [CeleXA] See Taper PO DAILY 06/21/19 06/26/19 History Omeprazole [PriLOSEC] 20 mg PO AC-BID #60 cap 06/21/19 06/26/19 Rx Turmeric Root Extract [Turmeric] 1,053 mg PO HS 06/21/19 06/26/19 History Vit C/E/Zn/Coppr/Lutein/Zeaxan 1 cap PO BID 06/21/19 06/26/19 History [Preservision Areds 2 Softgel] amLODIPine [Norvasc] 2.5 mg PO DAILY #30 tab 06/21/19 06/26/19 Rx Allergies Allergy/AdvReac Type Severity Reaction Status Date / Time No Known Allergies Allergy Verified 06/26/19 17:25 Physical Exam Vitals: Vital Signs Temp Pulse Pulse Resp BP BP Pulse Ox 06/27/19 03:44 97.8 F 54 L 18 118/68 95 06/26/19 22:49 56 L 18 122/82 95 06/26/19 22:31 98 F 61 18 167/73 95 06/26/19 20:10 64 18 116/84 95 06/26/19 17:50 98.7 F 63 18 151/87 96 06/26/19 17:03 60 18 155/92 99 06/26/19 16:06 98.2 F 79 18 197/113 99 Intake and Output 06/26/19 06/27/19 06/27/19 22:59 06:59 14:59 Intake Total 284.418 Balance 284.418 Intake: Intake, IV Titration 44.418 Amount Heparin Sod,Pork in 0.45% 44.418 NaCl 25,000 unit In 0.45 % NaCl 1 250ml.bag @ 12 UNITS/KG/HR 6.532 mls/hr IV .Q24H [facility] Rx#: [id number] Oral 240 Other: Weight 54.431 kg 54.4 kg - Constitutional General appearance: no acute distress - Respiratory Respiratory: bilateral: CTA - Cardiovascular Rhythm: regular Heart sounds: normal: S1, S2 Results 06/26/19 16:38 06/26/19 16:38 Cardiac Enzymes 06/26/19 06/26/19 06/26/19 Range/Units 16:38 16:38 22:45 AST 30 (14-36) U/L Troponin I <0.012 0.069 H* (0.000-0.034) ng/mL 06/27/19 Range/Units 05:37 AST (14-36) U/L Troponin I 0.029 (0.000-0.034) ng/mL Coagulation 06/26/19 06/27/19 Range/Units 16:38 05:37 PT 10.4 (9.0-12.0) sec APTT 23.4 151.3 H* (22.0-30.0) sec Lipids 06/27/19 Range/Units 05:37 Triglycerides 30 (<150) mg/dL Cholesterol 179 (<200) mg/dL HDL Cholesterol 79 H (40-60) mg/dL CBC 06/26/19 Range/Units 16:38 WBC 4.6 (3.8-10.6) k/uL RBC 5.02 (3.80-5.40) m/uL Hgb 14.0 (11.4-16.0) gm/dL Hct 42.6 (34.0-46.0) % Plt Count 217 (150-450) k/uL Comprehensive Metabolic Panel 06/26/19 Range/Units 16:38 Sodium 139 (137-145) mmol/L Potassium 3.9 (3.5-5.1) mmol/L Chloride 106 (98-107) mmol/L Carbon Dioxide 25 (22-30) mmol/L BUN 18 H (7-17) mg/dL Creatinine 0.58 (0.52-1.04) mg/dL Glucose 102 H (74-99) mg/dL Calcium 10.1 (8.4-10.2) mg/dL AST 30 (14-36) U/L ALT 27 (9-52) U/L Alkaline Phosphatase 46 (38-126) U/L Total Protein 7.4 (6.3-8.2) g/dL Albumin 4.5 (3.5-5.0) g/dL Current Medications Generic Name Dose Route Start Last Admin Trade Name Freq PRN Reason Stop Dose Admin Amlodipine Besylate 2.5 mg 06/27/19 09:00 Norvasc PO DAILY [facility] Ascorbic Acid 500 mg 06/27/19 09:00 Vitamin C PO DAILY [facility] Aspirin 325 mg 06/27/19 09:00 Aspirin PO DAILY [facility] Calcium Carbonate/Glycine 1,000 mg 06/27/19 21:00 Tums PO HS [facility] Cholecalciferol 1,000 unit 06/27/19 09:00 Vitamin D3 (25 Mcg = 1000 Iu) PO DAILY [facility] Citalopram Hydrobromide 10 mg 06/27/19 09:00 Celexa PO DAILY [facility] Heparin Sodium (Porcine) 0 unit 06/26/19 23:53 Heparin IV PER PROTOCOL PRN Low PTT Protocol Heparin Sodium/Sodium Chloride 250 mls @ 6.532 mls/hr 06/26/19 23:45 06/27/19 06:49 25,000 unit/ Sodium Chloride IV 0 units/kg/hr .Q24H [facility] 0 mls/hr Titration Protocol 12 UNITS/KG/HR Nitroglycerin 0.4 mg 06/26/19 20:33 Nitrostat SUBLINGUAL Q5M PRN Chest Pain Intake and Output 06/26/19 06/27/19 06/27/19 22:59 06:59 14:59 Intake Total 284.418 Balance 284.418 Intake: Intake, IV Titration 44.418 Amount Heparin Sod,Pork in 0.45% 44.418 NaCl 25,000 unit In 0.45 % NaCl 1 250ml.bag @ 12 UNITS/KG/HR 6.532 mls/hr IV .Q24H [facility] Rx#: [id number] Oral 240 Other: Weight 54.431 kg 54.4 kg 06/26/19 16:38 11/19/19 16:38 Assessment and Plan Assessment: Assessment #1 acute non-ST elevation myocardial infarction #2 hypertension #3 significant family history of coronary artery disease Plan #1 continue the current medical regimen #2 I did advise the patient to undergo coronary angiogram #3 obtain an echocardiogram was Doppler #4 follow-up with the patient
[2019-06-27] MEDS ORDERED: ASPIRIN 325 MG TAB PO SCH (09:00)
[2019-06-27] MEDS ORDERED: CITALOPRAM HYDROBROMIDE 20 MG TAB PO SCH (09:00)
[2019-06-27] MEDS: ASCORBIC ACID 500 MG TAB PO SCH (09:21)
[2019-06-27] MEDS: CHOLECALCIFEROL 1,000 UNIT TAB PO SCH (09:21)
[2019-06-27] MEDS: amLODIPine 2.5 MG TAB PO SCH (09:21)
[2019-06-27] MEDS: CITALOPRAM HYDROBROMIDE 10 MG TAB PO SCH (09:21)
[2019-06-27] MEDS ORDERED: ASPIRIN 325 MG TAB PO STA (12:54)
[2019-06-27] MEDS ORDERED: ALPRAZolam 0.5 MG TAB PO PRN (12:54)
[2019-06-27] MEDS ORDERED: ALPRAZolam 0.25 MG TAB PO PRN (12:54)
[2019-06-27] MEDS ORDERED: NITROGLYCERIN SL TABS 0.4 MG TAB SUBLINGUAL PRN (12:54)
[2019-06-27] MEDS ORDERED: ATORVASTATIN 80 MG TAB PO STA (12:54)
[2019-06-27] MEDS ORDERED: SODIUM CHLORIDE 0.9% 1,000 ML in EMPTY BAG 1 BAG IV ONE (12:54)
[2019-06-27] MEDS ORDERED: fentaNYL (PF) 50 MCG/ML 2 ML AMP IVP ONE (15:41)
[2019-06-27] MEDS ORDERED: SODIUM CHLORIDE 0.9% 1,000 ML IV ONE (15:41)
[2019-06-27] MEDS ORDERED: LIDOCAINE 1% INJ 10MG/ML (20 ML MDV) SQ ONE (15:43)
[2019-06-27] MEDS ORDERED: VERAPAMIL SYRINGE (5 MG/10 ML) INTRAARTER ONE (15:45)
[2019-06-27] MEDS ORDERED: MIDAZOLAM 2 MG/2 ML VIAL IVP ONE (15:46)
[2019-06-27] MEDS ORDERED: ADENOSINE 90 MG in SODIUM CHLORIDE 0.9% 60 ML IVP ONE (16:03)
[2019-06-27] MEDS ORDERED: HEPARIN SODIUM 1,000 UN/ML (10ML VL) IV ONE (16:05)
[2019-06-27] MEDS ORDERED: NITROGLYCERIN 1000MCG/10ML SYRINGE INTRACORON ONE (16:13)
[2019-06-27] MEDS ORDERED: IOPAMIDOL-370 125ML BTL INJ ONE (16:35)
[2019-06-27] MEDS ORDERED: RX INFO: IV CONTRAST WAS GIVEN 1 EACH MISC MISCELLANE PRN (16:35)
[2019-06-27] MEDS ORDERED: SODIUM CHLORIDE 0.9% 1,000 ML IV SCH (16:45)
--- NOTE | 2019-06-27 17:32 | CC ---
CARDIAC CATHETERIZATION REPORT Mrs. Oneil is a 74-year-old female with no prior history of coronary artery disease who presented with elevated blood pressure, mild chest discomfort and minimal troponin elevation. She was evaluated by Dr. Ahmadi and recommendation was made regarding cardiac catheterization. The procedure, its risks and complications were discussed with the patient, who was in full understanding and agreement. PROCEDURE: Patient was brought to the cardiac cath technician in a fasting, semi-sedated state after receiving fentanyl Benadryl and achieving a moderate conscious sedated state. Using Xylocaine anesthesia and Seldinger technique, a 6-Finnish sheath was introduced in the right radial artery. Selective right and left coronary angiography was performed using 5- Finnish 3-1/2 bend right and left Jayne catheters. Multiple views were taken of the arteries, including hemiaxial views. The right Jayne catheter was used to cross the aortic valve and left ventricular end-diastolic pressure was calculated. Following that, a 6-Finnish FL3.5 guiding catheter was introduced into the system and after cannulating the left main, a [employer] Doppler FloWire was introduced into the LAD and fractional flow reserve and instantaneous flow reserve IFR were calculated after the infusion of adenosine per protocol. Following that, catheter and sheath were removed. Hemostasis was obtained with deployment of a TR band. There was no immediate complication. Patient was returned to her room in stable condition. Of note, the patient received 5000 units of intravenous heparin as well as intra-arterial verapamil. FINDINGS: 1. FLUOROSCOPY: There was calcification involving the proximal left anterior descending artery. 2. LEFT MAIN: This is a large-sized vessel bifurcating into left circumflex, left anterior descending artery. Left main coronary artery has no evidence of high-grade stenosis. 3. LEFT ANTERIOR DESCENDING ARTERY: This is a large-sized vessel that tapers down in the distal third, gives rise to a large diagonal branch proximally. The takeoff of the diagonal branch has a 50% plaque. There is another 50% plaque in the LAD after the takeoff of the septal agri business agent. The rest of the vessel has no high-grade stenosis. 4. LEFT CIRCUMFLEX: This is a nondominant large vessel giving rise to a large obtuse marginal branch that is quite tortuous. The left circumflex as well as its branches have no evidence of obstructive coronary artery disease. 5. RIGHT CORONARY ARTERY: This is a large dominant vessel, has a superior takeoff bifurcating distally into PDA and posterolateral segment and branches. The takeoff of the PDA has a 40% plaque. The rest of the vessel has no high-grade stenosis. 6. LEFT VENTRICULAR END-DIASTOLIC PRESSURE: Left ventricular end-diastolic pressure was calculated at 8 to 12 mmHg. 7. IFR AND FFR OF THE LAD: The IFR was 96% and the FFR was 86%, consistent with non- hemodynamically significant lesion. RESULTS: 1. Moderate disease involving the LAD, diagonal branch and the right coronary artery. 2. Calcified proximal LAD. 3. Non-hemodynamically significant lesion in the LAD. RECOMMENDATIONS: In view of findings and anatomy, I have recommended continued medical therapy with the aggressive coronary risk modifications that have been initiated. Those findings and recommendation were discussed with the patient and her family, and they are in full understanding and agreement. MMODL / IJN: [id number] /
[2019-06-27] MEDS ORDERED: CALCIUM CARBONATE 500 MG CHEWABLE PO SCH (21:00)
[2019-06-28 06:52] LABS: African American GFR (CKD) >90 (>60 ml/min/1.73 sqM); Anion Gap 4 mmol/L; Blood Urea Nitrogen 16 mg/dL (7-17); Carbon Dioxide 27 mmol/L (22-30); Chloride 108 mmol/L (98-107); Glucose 90 mg/dL (74-99); Non-African American GFR(CKD) 87 (>60 ml/min/1.73 sqM); Potassium 4.4 mmol/L (3.5-5.1); Sodium 139 mmol/L (137-145)
--- NOTE | 2019-06-28 07:35 | ECHOF ---
Referral Reason:NSTEMI MEASUREMENTS -------- HEIGHT: 160.0 cm WEIGHT: 54.0 kg BP: RVIDd: 2.3 cm (< 3.3) IVSd: 0.7 cm (0.6 - 1.1) LVIDd: 3.9 cm (3.9 - 5.3) LVPWd: 1.0 cm (0.6 - 1.1) IVSs: 1.1 cm LVIDs: 2.0 cm LVPWs: 1.6 cm LAESV Index (A-L): 25.07 ml/m Ao Diam: 2.7 cm (2.0 - 3.7) AV Cusp: 1.6 cm (1.5 - 2.6) LA Diam: 3.7 cm (2.7 - 3.8) MV EXCURSION: 19.436 mm (> 18.000) MV EF SLOPE: 94 mm/s (70 - 150) EPSS: 0.5 cm MV E Zbigniew: 0.78 m/s MV DecT: 161 ms MV A Zbigniew: 0.86 m/s MV E/A Ratio: 0.91 AR PHT: 718 ms RAP: 5.00 mmHg RVSP: 26.15 mmHg TAPSE: 27.33 mm FINDINGS -------- Sinus rhythm. This was a technically good study. The left ventricular size is normal. Left ventricular wall thickness is normal. Overall left vent ricular systolic function is normal with, an EF between 55 - 60 %. The diastolic filling pattern is normal for the age of the patient 9.75. The right ventricle is normal in size. The right ventricular systolic function is normal. The left atrial size is normal. Normal LA size by volume 22+/-6 ml/m2. The right atrial size is normal. Interatrial and interventricular septum intact. The aortic valve is trileaflet and appears structurally normal. There is mild aortic regurgitation. The mitral valve is normal. There is trace mitral regurgitation. There is mild mitral valve prola pse. The tricuspid valve appears structurally normal. Mild tricuspid regurgitation present. Right vent ricular systolic pressure is normal at < 35 mmHg. There is no pulmonic regurgitation present. The aortic root size is normal. Normal inferior vena cava with normal inspiratory collapse consistent with estimated right atrial pre ssure of 5 mmHg. There is a trivial pericardial effusion present. CONCLUSIONS -------- 1. Sinus rhythm. 2. This was a technically good study. 3. The left ventricular size is normal. 4. Left ventricular wall thickness is normal. 5. Overall left ventricular systolic function is normal with, an EF between 55 - 60 %. 6. The diastolic filling pattern is normal for the age of the patient 9.75 7. The right ventricle is normal in size. 8. The right ventricular systolic function is normal. 9. The left atrial size is normal. 10. Normal LA size by volume 22+/-6 ml/m2. 11. The right atrial size is normal. 12. Interatrial and interventricular septum intact. 13. The aortic valve is trileaflet and appears structurally normal. 14. There is mild aortic regurgitation. 15. The mitral valve is normal. 16. There is trace mitral regurgitation. 17. There is mild mitral valve prolapse. 18. The tricuspid valve appears structurally normal. 19. Mild tricuspid regurgitation present. 20. Right ventricular systolic pressure is normal at < 35 mmHg. 21. There is no pulmonic regurgitation present. 22. The aortic root size is normal. 23. Normal inferior vena cava with normal inspiratory collapse consistent with estimated right atrial pressure of 5 mmHg. 24. There is a trivial pericardial effusion present. TANK TRUCK MECHANIC: Tomasa Arriola RDCS
[2019-06-28] MEDS: CHOLECALCIFEROL 1,000 UNIT TAB PO SCH (08:37)
[2019-06-28] MEDS: CITALOPRAM HYDROBROMIDE 10 MG TAB PO SCH (08:37)
[2019-06-28] MEDS: ASCORBIC ACID 500 MG TAB PO SCH (08:37)
[2019-06-28] MEDS: amLODIPine 2.5 MG TAB PO SCH (08:37)
[2019-06-28 08:43] VITALS: RESP 16; TEMP 96.3
[2019-06-28] MEDS ORDERED: ATORVASTATIN 40 MG TAB PO SCH (09:00)
[2019-06-28] MEDS ORDERED: ASPIRIN 81 MG PO SCH (09:00)
--- NOTE | 2019-06-28 11:36 | P.PN ---
Subjective Progress Note Date: 06/28/19 Principal diagnosis: Chest pain This is a pleasant 74-year-old female patient with hypertension who was admitted to the hospital with chest discomfort and ruled in for acute non-ST elevation IA. She underwent a heart catheterization yesterday and that revealed mild to moderate nonobstructive coronary artery disease. She was seen this morning. She is a symptomatic from a cardiovascular standpoint overview. The patient can be discharged home. Objective - Vital Signs Vital signs: Vital Signs Temp 96.3 F L 06/28/19 08:00 Pulse 55 L 06/28/19 08:00 Resp 16 06/28/19 08:00 BP 114/60 06/28/19 08:00 Pulse Ox 96 06/28/19 08:00 Intake & Output 06/27/19 06/28/19 06/28/19 18:59 06:59 18:59 Intake Total 521 240 Balance 521 240 Weight 55.1 kg Intake: IV 141 Intake, IV Titration 150 Amount Heparin Sod,Pork in 0.45% 0 NaCl 25,000 unit In 0.45 % NaCl 1 250ml.bag @ 12 UNITS/KG/HR 6.532 mls/hr IV .Q24H T[place] Rx#: [id number] Sodium Chloride 0.9% 1, 150 000 ml In Empty Bag 1 bag @ 1 ML/KG/HR 54.4 mls/hr IV .[id number] ONE Rx#: [id number] Oral 230 240 Other: # Voids 3 1 - Constitutional General appearance: Present: no acute distress - Respiratory Respiratory: bilateral: CTA - Cardiovascular Rhythm: regular Heart sounds: normal: S1, S2 - Labs CBC & Chem 7: 06/26/19 16:38 06/28/19 05:49 Labs: Abnormal Lab Results - Last 24 Hours (Table) 06/27/19 06/28/19 Range/Units 15:13 05:49 APTT 111.6 H* (22.0-30.0) sec Chloride 108 H (98-107) mmol/L Assessment and Plan Assessment: Assessment #1 acute non-ST elevation myocardial infarction #2 hypertension #3 mild to moderate non-obstructive coronary artery disease Plan #1 continue the current medical regimen including aspirin and statin #2 the patient can be discharged home
[2019-06-28 12:15] VITALS: BP 146/67; PULSE 59
--- NOTE | 2019-07-02 17:04 | P.DS ---
Providers Date of admission: 06/27/19 11:54 Expected date of discharge: 06/28/19 Attending physician: Dipak Mckinley Consults: 06/26/19 20:33 Consult Physician Urgent Consulting Provider: Bethel Lyman Consult Reason/Comments: cp Do you want consulting provider notified?: Yes Primary care physician: Charly Monteroashley [facility] Course: Hospital course: This is a very pleasant 74-year-old patient of Dr. Renteria. Chronic stable medical conditions include mitral valve prolapse, osteoarthritis, GERD, essential hypertension, depression. Recently admitted to the hospital unco ntrolled blood pressure and felt to have exacerbation of GERD. Readmitted to include controlled blood pressure and chest pain. Underwent cardiac catheterization, that showed moderate coronary artery disease and calcified proximal LAD. Cardiology decided to proceed with medical management. Patient doing better by the time of discharge.. Lipitor was added. Diagnosed non-ST elevation myocardial infarction per cardiology. Consultation: Dr. Ace from cardiology Procedure-cardiac catheterization Physical examination: VITAL SIGNS: 96.3, 55, 16, 11 4/60, 96% room air GENERAL: Sitting up, comfortable EYES: Pupils equal. Conjunctiva normal. HEENT: External appearance of nose and ears normal, oral cavity grossly normal. NECK: JVD not raised; masses not palpable. HEART: First and second heart sounds are normal; no edema. LUNGS: Respiratory rate normal; clear to auscultation. ABDOMEN: Soft, nontender, liver spleen not palpable, no masses palpable. MUSCULOSKELETAL: Evidence of OA in the hands INVESTIGATIONS, reviewed in the clinical context: White count 4.6 hemoglobin 13.6 platelets 188 potassium 4 creatinine 0.67 Troponin I 2 less than 0.012 ProBNP 86 EKG tracing personally reviewed by me-maybe ST segment changes in lateral leads Chest x-ray film personally reviewed by me-lung rojas clear LDL 94 Cardiac catheterization-moderate disease involving the LAD, diagonal branch, and the right coronary artery. Calcified proximal LAD 2-D echo-- 55-60% Assessment: -Acute non-ST elevation myocardial infarction. -Moderate coronary artery disease.. -GERD uncontrolled -Mitral valve prolapse -primary osteoarthritis -Depression otherwise specified -Essential hypertension uncontrolled Disposition: Home Patient Condition at Discharge: Stable Plan - Discharge Summary New Discharge Prescriptions: New Atorvastatin [Lipitor] 40 mg PO DAILY #30 tab Continue Glucosam/Simone-Msm1/C/Coleman/Bosw [Glucosamine-Chondroitin Tablet] 1 tab PO DAILY Cholecalciferol [Vitamin D3 (25 Mcg = 1000 Iu)] 1,000 unit PO DAILY Calcium Carbonate [Calcium] 1,200 mg PO HS Ascorbic Acid [Vitamin C] 500 mg PO DAILY Vit C/E/Zn/Coppr/Lutein/Zeaxan [Preservision Areds 2 Softgel] 1 cap PO BID Turmeric Root Extract [Turmeric] 1,053 mg PO HS Citalopram Hydrobromide [CeleXA] See Taper PO DAILY Aspirin 81 mg PO DAILY #30 chewable amLODIPine [Norvasc] 2.5 mg PO DAILY #30 tab Omeprazole [PriLOSEC] 20 mg PO AC-BID #60 cap Discharge Medication List Ascorbic Acid [Vitamin C] 500 mg PO DAILY 05/30/16 [History] Calcium Carbonate [Calcium] 1,200 mg PO HS 05/30/16 [History] Cholecalciferol [Vitamin D3 (25 Mcg = 1000 Iu)] 1,000 unit PO DAILY 05/30/16 [History] Glucosam/Simone-Msm1/C/Coleman/Bosw [Glucosamine-Chondroitin Tablet] 1 tab PO DAILY 05/30/16 [History] Aspirin 81 mg PO DAILY #30 chewable 06/21/19 [Rx] Citalopram Hydrobromide [CeleXA] See Taper PO DAILY 06/21/19 [History] Omeprazole [PriLOSEC] 20 mg PO AC-BID #60 cap 06/21/19 [Rx] Turmeric Root Extract [Turmeric] 1,053 mg PO HS 06/21/19 [History] Vit C/E/Zn/Coppr/Lutein/Zeaxan [Preservision Areds 2 Softgel] 1 cap PO BID 06/21/19 [History] amLODIPine [Norvasc] 2.5 mg PO DAILY #30 tab 06/21/19 [Rx] Atorvastatin [Lipitor] 40 mg PO DAILY #30 tab 06/28/19 [Rx] Follow up Appointment(s)/Referral(s): Btehel Lyman MD [STAFF PHYSICIAN] - 07/03/19 2:15 pm (With Kylee CR) Hola Renteria MD [Primary Care Provider] - 07/02/19 1:40 pm Patient Instructions/Handouts: Heart Healthy Diet (DC), After Radial Heart Catheterization (GEN) Activity/Diet/Wound Care/Special Instructions: CARDIAC CATH 1. Support your puncture site by applying firm, steady pressure whenever you cough, laugh, sneeze or bear down to have a bowel movement (2-day restriction for groin site puncture). 2. Watch for any excessive bruising, active bleeding, a firm knot forming under your skin, extreme tenderness and signs of infection (redness, swelling, fever). 3. Shower daily, do not soak puncture in a tub bath, jacuzzi, pool, [place] etc. for 1 week. This is to prevent risk of infection. 4. Drink plenty of fluids the day of and day after your procedure to flush contrast dye out of your kidneys. 5. Take all medications as directed. Never stop any new medication without your physicians OK. 6. No driving for 2 days after procedure. 7. 10- pound weight lifting restriction for 1 week. 8. Low sodium/low fat diet. 9. Activity limited until follow up appointment with your retail merchandising coordinator. In case of any problems, please call [facility] [place] @ [phone]. Discharge Disposition: HOME SELF-CARE
== END 2019-06-28 14:03 | disposition home or self-care (01) ==
LOC: EC 16:04 → 1SOBS 20:33 → UNDOADMOB 20:33 → 3SCARD 22:41 → 1SOBS 22:41 → 3SCARD 23:09 → OBSVTOIN 06-27 11:54 → INTOOBSV 06-27 11:54 → UNDODISIN 06-28 14:03
PROVIDERS: ADMIT Hospitalist; ATTEND Hospitalist
PROC: 4A033BC Measurement of Arterial Pressure, Coronary, Percutaneous Approach (ICD-10-PCS; 2019-06-27)
PROC: 4A023N7 Measurement of Cardiac Sampling and Pressure, Left Heart, Percutaneous Approach (ICD-10-PCS; principal; 2019-06-27 13:15)
PROC: B2111ZZ Fluoroscopy of Multiple Coronary Arteries using Low Osmolar Contrast (ICD-10-PCS; 2019-06-27 13:15)
DX: I21.4 Non-ST elevation (NSTEMI) myocardial infarction (principal); I34.1 Nonrheumatic mitral (valve) prolapse; I10 Essential (primary) hypertension; I25.10 Atherosclerotic heart disease of native coronary artery without angina pectoris; K21.9 Gastro-esophageal reflux disease without esophagitis; M15.0 Primary generalized (osteo)arthritis; M81.0 Age-related osteoporosis without current pathological fracture; Z79.82 Long term (current) use of aspirin; Z79.899 Other long term (current) drug therapy; Z86.73 Personal history of transient ischemic attack (TIA), and cerebral infarction without residual deficits; Z98.42 Cataract extraction status, left eye; Z98.41 Cataract extraction status, right eye; Z86.59 Personal history of other mental and behavioral disorders; Z96.1 Presence of intraocular lens; Z82.49 Family history of ischemic heart disease and other diseases of the circulatory system; Z82.5 Family history of asthma and other chronic lower respiratory diseases; Z83.3 Family history of diabetes mellitus; Z81.8 Family history of other mental and behavioral disorders
CPT/HCPCS: 96376; 96365; 96366; 93005 ×2; 96361; 99285; 36415; 93306; 93571; 93458; 83880; 80061; 80053; 80048; 83690; 83735; 84484 ×2; 85025; 85610; 85730 ×2; 71046; 71275; G0378 ×4; J2250; J1644 ×3; J2001; J3010; J0153; Q9967 ×2; 96360

== ENCOUNTER 2019-06-29 12:05 | Day surgery (SDC) | payer MEDICARE ==
[2019-06-29 12:20] VITALS: RESP 16; TEMP 98.9
[2019-06-29 12:28] LABS: Glucose,Whole Blood 92 mg/dL (75-99)
[2019-06-29] MEDS ORDERED: ONDANSETRON 4 MG/2 ML VIAL IVP ONE (12:29)
[2019-06-29] MEDS ORDERED: LACTATED RINGERS 1,000 ML IV ONE (12:29)
[2019-06-29] MEDS ORDERED: LIDOCAINE 1% INJ 10MG/ML (20 ML MDV) ONE (13:15)
[2019-06-29] MEDS ORDERED: PROPOFOL 10 MG/ML 20 ML VIAL IV ONE (13:15)
--- NOTE | 2019-06-29 13:26 | P.PCN ---
Date of Procedure: 06/29/19 Procedure(s) Performed: BRIEF HISTORY: Patient is a 74-year-old, pleasant, female, scheduled for an upper endoscopy as a part of evaluation duration.. PROCEDURE PERFORMED: Esophagogastroduodenoscopy with biopsy. PREOPERATIVE DIAGNOSIS: Epigastric pain/GERD. IV sedation per anesthesia. PROCEDURE: After informed consent was obtained, the patient was brought into the endoscopy unit. IV sedation was administered by Anesthesia under continuous monitoring. Initially the Olympus GIF-140 video endoscope was inserted into the mouth. Esophagus intubated without any difficulty. It was gradually advanced into the stomach and duodenum and carefully examined. The bulb and the second part of the duodenum appeared normal. The scope at this time was withdrawn to the stomach, adequately insufflated with air, and upon careful examination, mucosa of the antrum had mild gastritis and biopsies were done from this area. The body, cardia and the fundus appeared normal. The scope was then withdrawn into the esophagus. The GE junction was located at 39 cm from the incisors. There were 2 superficial erosions at the GE junction consistent with LA grade a reflux esophagitis. The rest of the esophagus appeared normal and the patient tolerated the procedure well. IMPRESSION: 1. Mild antral gastritis. 2. LA grade A reflux esophagitis. RECOMMENDATIONS: The findings of this examination were discussed with the patient as well as a family. She was advised to follow with the biopsy results. Continue with omeprazole 20 mg daily and follow antireflux measures.
[2019-06-29 13:57] VITALS: BP 155/77; PULSE 51
[2019-06-29] MEDS ORDERED: LIDOCAINE 1% 20 ML VIAL (10MG/ML) FOR IV START INTRADERMA PRN (14:00)
[2019-06-29] MEDS ORDERED: LACTATED RINGERS 1,000 ML IV SCH (14:00)
== END 2019-06-29 14:00 | disposition home or self-care (01) ==
LOC: ORWHC2ENDO 12:05
PROVIDERS: ATTEND Internal Medicine Gastroenterology
DX: K21.0 Gastro-esophageal reflux disease with esophagitis (principal); I34.1 Nonrheumatic mitral (valve) prolapse; R00.2 Palpitations; E16.2 Hypoglycemia, unspecified; Z86.73 Personal history of transient ischemic attack (TIA), and cerebral infarction without residual deficits; M19.90 Unspecified osteoarthritis, unspecified site; F32.9 Major depressive disorder, single episode, unspecified; K21.9 Gastro-esophageal reflux disease without esophagitis; Z97.2 Presence of dental prosthetic device (complete) (partial); Z79.82 Long term (current) use of aspirin; Z79.899 Other long term (current) drug therapy
CPT/HCPCS: 43239; J2405; J2001; J2704; 88305

== ENCOUNTER → 2020-04-07 | Outpatient (CLI) | payer MEDICARE, BC ==
--- NOTE | 2020-04-09 09:51 | MM ---
Reason for exam: screening (asymptomatic). Last mammogram was performed 1 year ago. History: Patient is postmenopausal. Benign excisional biopsy of the left breast, 2000. Physical Findings: A clinical breast exam by your physician is recommended on an annual basis and results should be correlated with mammographic findings. MG Screening Mammo w CAD Bilateral CC and MLO view(s) were taken. Prior study comparison: April 05, 2019, bilateral MG screening mammo w CAD. September 19, 2014, bilateral MG screening mammo w CAD. The breast tissue is heterogeneously dense. This may lower the sensitivity of mammography. No significant changes when compared with prior studies. ASSESSMENT: Negative, BI-RAD 1 RECOMMENDATION: Routine screening mammogram of both breasts in 1 year.
== END | disposition home or self-care (01) ==
LOC: RADMAMWWP 14:27
PROVIDERS: ATTEND Family Medicine
DX: Z12.31 Encounter for screening mammogram for malignant neoplasm of breast (principal)
CPT/HCPCS: 77067

== ENCOUNTER → 2020-05-21 | Outpatient (CLI) | payer MEDICARE, BC ==
[2020-05-21 11:38] VITALS: BP 137/80; PULSE 58; RESP 18; TEMP 98.5
--- NOTE | 2020-05-21 13:08 | P.HPOB ---
History of Present Illness H&P Date: 05/21/20 Chief Complaint: The patient is here for routine gynecologic exam. This is a 75-year-old with an LMP of 1979. The patient is here to reestablish with this office. She was last seen in 2013. She denies any postmenopausal bleeding. She has been experiencing vulvar irritation with soreness and itching. She has noticed some irritation on and off for about 2 years. During the last 2 months, it seems to be all the time. She states that it feels good when she scratches it and it seems to itch more after scratching it. She denies any significant discharge or odor. She is otherwise without complaints. She is not sexually active. Review of Systems She has lost about 3 or 4 pounds recently after she has increased her exercise and activity. She denies respiratory or cardiac problems. GI: Occasional heartburn. She denies maltreatment or problems with falling. : she denies any significant problems with urinary leakage but there are times when she has to go, she has to get to the bathroom right away. Past Medical History Past Medical History: Coronary Artery Disease (CAD), GERD/Reflux, Hypertension Additional Past Medical History / Comment(s): MVP, osteopenia, generalized arthritis, possible TIAs or lacuner stroke per past medical record, hypoglycemia. History of Any Multi-Drug Resistant Organisms: None Reported Past Surgical History: Orthopedic Surgery Additional Past Surgical History / Comment(s): EGD 2019, colonoscopy 2010, mortons neuroma bilateral feet, bilateral cataract removals/lens implants. Past Anesthesia/Blood Transfusion Reactions: No Reported Reaction Past Psychological History: Depression Additional Psychological History / Comment(s): Pt has an adult grandson staying with her at this time. She is independent. Smoking Status: Never smoker Past Alcohol Use History: Rare (5 per year) Past Drug Use History: None Reported Additional History: She has been a since 2009. She is not sexually active. - Past Family History Father Family Medical History: Asthma, COPD, Diabetes Mellitus, Myocardial Infarction ([place]) Additional Family Medical History / Comment(s): Bronchitis. Father at the age of 80yrs. He was a smoker. Mother Family Medical History: Dementia Additional Family Medical History / Comment(s): Mother of dementia at the age of 86yrs. There is no family history of cancer of the breast, uterus, ovaries, or colon. Medications and Allergies Home Medications Medication Instructions Recorded Confirmed Type Ascorbic Acid [Vitamin C] 500 mg PO DAILY 05/30/16 05/21/20 History Cholecalciferol [Vitamin D3 (25 1,000 unit PO DAILY 05/30/16 05/21/20 History Mcg = 1000 Iu)] Glucosam/Simone-Msm1/C/Coleman/Bosw 1 tab PO DAILY 05/30/16 05/21/20 History [Glucosamine-Chondroitin Tablet] Aspirin 81 mg PO DAILY #30 chewable 06/21/19 05/21/20 Rx Citalopram Hydrobromide [CeleXA] See Taper PO DAILY 06/21/19 05/21/20 History Omeprazole [PriLOSEC] 20 mg PO AC-BID #60 cap 06/21/19 05/21/20 Rx Turmeric Root Extract [Turmeric] 1,053 mg PO HS 06/21/19 05/21/20 History Vit C/E/Zn/Coppr/Lutein/Zeaxan 1 cap PO BID 06/21/19 05/21/20 History [Preservision Areds 2 Softgel] amLODIPine [Norvasc] 2.5 mg PO DAILY #30 tab 06/21/19 05/21/20 Rx Atorvastatin [Lipitor] 40 mg PO DAILY #30 tab 06/28/19 05/21/20 Rx Allergies Allergy/AdvReac Type Severity Reaction Status Date / Time No Known Allergies Allergy Verified 05/21/20 11:32 Exam Vital Signs Temp Pulse Resp BP Pulse Ox 05/21/20 11:32 98.5 F 58 L 18 137/80 99 Intake and Output 05/20/20 05/21/20 05/21/20 22:59 06:59 14:59 Other: Weight 53.524 kg Height 5 feet 3 inches, weight 118 pounds, BMI 20.9. This is a well-developed well-nourished white female who is alert and oriented times 3 in no acute distress. HEENT: Within normal limits. NECK: Supple without mass or thyromegaly. CHEST AND LUNGS: Clear to auscultation. HEART: Regular rate and rhythm. BREASTS: Are without mass or discharge. AXILLARY EXAM: Negative for adenopathy. BACK: Negative for CVA tenderness. ABDOMEN: Soft, nontender, without palpable masses. PELVIC EXAM:external genitalia: Minimal erythema with moderate atrophy. There are no focal lesions and no leukoplakia, however, she points out an area that seems to be the most irritated on the left labia majora at approximately the 4 o'clock position. There is no lesions seen and no ulceration or excoriation in this area. Cervix and vagina appear normal with moderate atrophy. There is no unusual discharge. There is no evidence of prolapse. The uterus is midposition, nongravid size and nontender. There are no palpable adnexal masses or tenderness. RECTAL EXAM: Rectovaginal exam is negative for mass or tenderness and is negative for occult blood. EXTREMITIES: Nontender. IMPRESSION: 1. 75-year-old menopausal female with worsening vulvar pruritus and vulvar irritation greatest on the left side with no significant physical findings at this time. Differential diagnosis will include chronic vulvar irritation, Susan vaginitis, bacterial vaginosis, atrophic vulvitis and at this time I doubt lichen sclerosis or vulvar dysplasia. 2. History of osteopenia. PLAN: 1. Pap smear was performed. We will obtain the Pap smear done on 07/17/2014 as well as the last 4 Pap smears from [facility]. We will consider discontinuing Pap smears if these have been normal with adequate screening. 2. Self breast awareness was discussed with the patient. 3. Screening mammogram was done on 04/07/2020 and was benign. 4. Osteoporosis prevention was discussed. I have stressed the importance of adequate calcium, vitamin D and regular exercise. Recommended amounts of calcium and vitamin D were also discussed. We will plan on repeating bone density testing in approximately 1-2 years. Her last one was done on 04/05/2019 and showed osteopenia. 5. Affirm testing was obtained from the vagina to check for Susan, Gardnerella, and Trichomonas. 6. Kenalog 0.1% cream twice a day to the vulva as needed for vulvar pruritus. The electronic prescription will be sent to [facility] pharmacy. I have asked her to avoid over washing as well as avoiding scratching and rubbing the area. She can also try a small amount of petroleum jelly at times other than when she is applying the Kenalog cream as a protective layer. 7. If her symptoms are not improving, we can consider vulvar biopsy since she does seem to have a focal area that seems to bother her the most on the left labia majora at the 4 o'clock position. 8. The patient was advised to return in 1-2 years for her well woman examination and as needed.
[2020-05-22 03:06] LABS: Gardnerella Negative (Negative); Source Vagina; Trichomonas Negative (Negative)
== END | disposition home or self-care (01) ==
LOC: WWCWWP 11:12
PROVIDERS: ATTEND Obstetrics & Gynecology
DX: N76.2 Acute vulvitis (principal); L29.2 Pruritus vulvae
CPT/HCPCS: 87480; 87510; 87660

== ENCOUNTER → 2022-04-26 | Outpatient (CLI) | payer MEDICARE, BC ==
--- NOTE | 2022-04-26 19:30 | BD ---
EXAMINATION TYPE: Axial Bone Density DATE OF EXAM: 04/26/2022 CLINICAL HISTORY: 77 years year old Female. ICD-10 CODE: M89.9 DISORDER OF BONE Height: 62.25 Weight: 118 FRAX RISK QUESTIONS: Alcohol (3 or more units per day): NO Family History (Parent hip fracture): NO Glucocorticoids (More than 3mos): NO History of Fracture in Adulthood: FOOT Secondary Osteoporosis: 1. Type 1 Diabetes: NO 2. Hyperthyroidism: NO 3. Menopause before 45: YES 4. Malnutrition: NO 5. Chronic liver disease: NO Rheumatoid Arthritis: NO Current Tobacco Use: NO RISK FACTORS HISTORY OF: Hip Fracture (Right/Left): NO Spine Fracture: NO History of Wrist Fracture:NO Surgery to Spine/Hip(right/left)/Wrist (right/left): NO Family History of Osteoporosis: NO Active: YES Diet low in dairy products/other sources of calcium: NO Postmenopausal woman: YES Take estrogen and/or progesterone medications: NO Lost more than 2 inches in height since high school: NO Frequent falls: NO Poor Health: NO Hyperparathyroidism: NO Adrenal Insufficiency: NO MEDICATIONS: Prednisone or other steroids: NO Thyroid Medications: NO Osteoporosis Medications: NO Additional Medications: CALCIUM, VIT D, NOURIVA, CITALOPRAM, REFLUX MEDS, BP MEDS Additional History: EXAM MEASUREMENTS: Bone mineral densitometry was performed using the [employer] System. Bone mineral density as measured about the Lumbar spine is: ----- L1-L4(G/cm2): 0.957 T Score Values are as follows: ----- L1: -2.4 ----- L2: -2.0 ----- L3: -1.0 ----- L4: 0.2 ----- L1-L4: -1.2 Bone mineral density has: INCREASED 3.5 % since study of: 09/19/2014 Bone mineral density about the R hip (g/cm2): 0.735 Bone mineral density about the L hip (g/cm2) 0.796 T Score values are as follows: -----R Neck: -2.2 -----L Neck: -1.7 -----R Total: -2.2 -----L Total: -1.4 Bone mineral density has: UNCHANGED % since study of: 09/19/2014 FRAX%s: The graph provided illustrates a 19.7% chance for a major osteoporotic fx and a 5.5% chance f or the hips probability for fx in 10 years time. IMPRESSION: Osteopenia (T Score between -2.5 and -1). There is slightly increased risk of fracture and the patient may be considered for treatment. Re-Screen 2-5 years. NOTE: T-SCORE=SD OF THE YOUNG ADULT MEAN.
--- NOTE | 2022-04-27 09:26 | MM ---
Reason for Exam: Screening (asymptomatic). Last mammogram was performed 2 year(s) and 1 month(s) ago. Patient History: Menarche at age 15. First Full-Term at age 21. Postmenopausal. 2000, Benign Excisional Biopsy on the left side. Risk Values: Eladia 5 year model risk: 1.5%. NCI Lifetime model risk: 3.3%. Prior Study Comparison: 09/19/2014 Bilateral Screening Mammogram, [facility]. 04/05/2019 Bilateral Screening Mammogram, [facility]. 04/07/2020 Bilateral Screening Mammogram, [facility]. Tissue Density: The breast tissue is heterogeneously dense. This may lower the sensitivity of mammography. Findings: Analyzed By CAD. There is no suspicious group of microcalcifications or new suspicious mass in either breast. No significant change from prior exams. Overall Assessment: Negative, BI-RAD 1 Management: Screening Mammogram of both breasts in 1 year. A clinical breast exam by your physician is recommended on an annual basis and results should be correlated with mammographic findings. Electronically signed and approved by: London Palacios D.O.
== END | disposition home or self-care (01) ==
LOC: RADMAMWWP 15:36
PROVIDERS: ATTEND Family Medicine
DX: Z12.31 Encounter for screening mammogram for malignant neoplasm of breast (principal); M85.89 Other specified disorders of bone density and structure, multiple sites; Z78.0 Asymptomatic menopausal state
CPT/HCPCS: 77063; 77067; 77080

== ENCOUNTER 2025-02-11 23:31 | Emergency (ER) | payer MEDICARE, BC ==
[2025-02-11 23:38] VITALS: RESP 16; TEMP 97.6
--- NOTE | 2025-02-12 00:12 | ED ---
General Adult HPI - General Chief complaint: Recheck/Abnormal Lab/Rx Stated complaint: high blood pressure, headache Time Seen by Provider: 02/11/25 23:42 Source: patient, RN notes reviewed Mode of arrival: ambulatory Limitations: no limitations - History of Present Illness Initial comments: 80-year-old female presents emergency department chief complaint of generalized not feeling well, hypertension. Patient states she went to lay down and states that she just did not feel well states that she felt warm and flushed. Patient states that she checked her blood pressure and was elevated. She states this has been happening in which her visual design lead feel worried about it. Patient states that she takes low-dose amlodipine in the morning. Patient states she did not miss any doses. Patient denies any paresthesias denies any focal weakness denies chest pain states she did have some nausea and slight headache. - Related Data Home Medications Medication Instructions Recorded Confirmed Ascorbic Acid [Vitamin C] 500 mg PO DAILY 05/30/16 04/29/23 Cholecalciferol [Vitamin D3 (25 1,000 unit PO DAILY 05/30/16 04/29/23 Mcg = 1000 Iu)] Glucosam/Simone-Msm1/C/Coleman/Bosw 1 tab PO DAILY 05/30/16 04/29/23 [Glucosamine-Chondroitin Tablet] Citalopram Hydrobromide [CeleXA] 20 mg PO DAILY 06/21/19 04/29/23 Turmeric Root Extract [Turmeric] 1,053 mg PO HS 06/21/19 04/29/23 Vit C/E/Zn/Coppr/Lutein/Zeaxan 1 cap PO BID 06/21/19 04/29/23 [Preservision Areds 2 Softgel] Atorvastatin [Lipitor] 20 mg PO Q48H 04/26/23 04/29/23 Neureva (Unk) 1 tab PO DAILY 04/26/23 04/29/23 Previous Rx's Medication Instructions Recorded Omeprazole [PriLOSEC] 20 mg PO AC-BID #60 cap 06/21/19 amLODIPine [Norvasc] 2.5 mg PO DAILY #30 tab 06/21/19 Allergies Allergy/AdvReac Type Severity Reaction Status Date / Time No Known Allergies Allergy Verified 02/11/25 23:38 Review of Systems ROS Statement: Those systems with pertinent positive or pertinent negative responses have been documented in the HPI. ROS Other: All systems not noted in ROS Statement are negative. Past Medical History Past Medical History: Coronary Artery Disease (CAD), GERD/Reflux, Hypertension Additional Past Medical History / Comment(s): MVP, osteopenia, generalized arthritis, hypoglycemia. History of Any Multi-Drug Resistant Organisms: None Reported Past Surgical History: Heart Catheterization, Orthopedic Surgery Additional Past Surgical History / Comment(s): EGD 2019, colonoscopy 2010, mortons neuroma bilateral feet, bilateral cataract removals/lens implants. Past Anesthesia/Blood Transfusion Reactions: No Reported Reaction Past Psychological History: Depression Smoking Status: Never smoker Past Alcohol Use History: None Reported Past Drug Use History: None Reported - Past Family History Father Family Medical History: Asthma, COPD, Diabetes Mellitus, Myocardial Infarction (DC) Additional Family Medical History / Comment(s): Bronchitis. Father at the age of 80yrs. He was a smoker. Mother Family Medical History: Dementia Additional Family Medical History / Comment(s): Mother of dementia at the age of 86yrs. There is no family history of cancer of the breast, uterus, o varies, or colon. General Exam Limitations: no limitations General appearance: alert, in no apparent distress Head exam: Present: atraumatic, normocephalic, normal inspection Eye exam: Present: normal appearance, PERRL, EOMI. Absent: scleral icterus, conjunctival injection, periorbital swelling ENT exam: Present: normal exam, mucous membranes moist Neck exam: Present: normal inspection, full ROM. Absent: tenderness, meningismus, lymphadenopathy Respiratory exam: Present: normal lung sounds bilaterally. Absent: respiratory distress, wheezes, rales, rhonchi, stridor Cardiovascular Exam: Present: regular rate, normal rhythm, normal heart sounds. Absent: systolic murmur, diastolic murmur, rubs, gallop, clicks GI/Abdominal exam: Present: soft, normal bowel sounds. Absent: distended, tenderness, guarding, rebound, rigid Back exam: Present: full ROM. Absent: tenderness Neurological exam: Present: alert, oriented X3, CN II-XII intact Skin exam: Present: warm, dry, intact, normal color. Absent: rash Course Vital Signs 02/11/25 02/12/25 23:35 00:36 Temperature 97.6 F Pulse Rate 62 57 L Respiratory 16 16 Rate Blood Pressure 209/111 148/95 O2 Sat by Pulse 96 Oximetry EKG Findings - EKG Comments: EKG Findings:: EKG performed and there is 0: 08 sinus bradycardia with multiple, rate of 58 NE 167 QRS 94 QT/QTc 424/420 - EKG Results: EKG: interpreted by FRANKIE Medical Decision Making - Medical Decision Making Was pt. sent in by a medical professional or institution (, PA, GEOMATICS PROFESSOR, urgent care, hospital, or alf...) When possible be specific @ -No Did you speak to anyone other than the patient for history (EMS, parent, family, police, friend...)? What history was obtained from this source @ -No Did you review nursing and triage notes (agree or disagree)? Why? @ -I reviewed and agree with nursing and triage notes Were old charts reviewed (outside hosp., previous admission, EMS record, old EKG, old radiological studies, urgent care reports/EKG's, alf records)? Report findings @ -No old charts were reviewed Differential Diagnosis (chest pain, altered mental status, abdominal pain women, abdominal pain men, vaginal bleeding, weakness, fever, dyspnea, syncope, headache, dizziness, GI bleed, back pain, seizure, CVA, palpatations, mental health, musculoskeletal)? @ -Differential Palpitations Ventricular arrhythmias, atrial arrhythmias, myocardial infarction, anemia, thyrotoxicosis, electrolyte imbalance, hypokalemia, pulmonary embolism, pulmonary disease, drugs, alcohol, anxiety, stress.... This is not meant to be an all-inclusive list. EKG interpreted by me (3pts min.). @ -As above X-rays interpreted by me (1pt min.). @ -None done CT interpreted by me (1pt min.). @ -None done U/S interpreted by me (1pt. min.). @ -None done What testing was considered but not performed or refused? (CT, X-rays, U/S, labs)? Why? @ -None What meds were considered but not given or refused? Why? @ -None Did you discuss the management of the patient with other professionals (professionals i.e. , BARBI, GEOMATICS PROFESSOR, lab, RT, psych nurse, social insurance adviser, pharmacy clerk, teacher, food safety officer, transplant case manager)? Give summary @ -No Was smoking cessation discussed for >3mins.? @ -No Was critical care preformed (if so, how long)? @ -No Were there social determinants of health that impacted care today? How? (Homelessness, low income, unemployed, alcoholism, drug addiction, transportation, low edu. Level, literacy, decrease access to med. care, long term, rehab)? @ -No Was there de-escalation of care discussed even if they declined (Discuss DNR or withdrawal of care, Hospice)? DNR status @ -No What co-morbidities impacted this encounter? (DM, HTN, Smoking, COPD, CAD, Cancer, CVA, ARF, Chemo, Hep., AIDS, mental health diagnosis, sleep apnea, mo rbid obesity)? @ -Hypertension Was patient admitted / discharged? Hospital course, mention meds given and route, prescriptions, significant lab abnormalities, going to OR and other pertinent info. @ -Charge patient presenting for concerns of hypertension and flushed feeling. Patient blood pressure has improved patient is currently asymptomatic laboratory studies unremarkable patient does have multiple PVCs which patient does see cardiology regularly. Patient states that she feels better she feels comfortable discharge return parameters discussed Undiagnosed new problem with uncertain prognosis? @ -No Drug Therapy requiring intensive monitoring for toxicity (Heparin, Nitro, Insulin, Cardizem)? @ -No Were any procedures done? @ -No Diagnosis/symptom? @ -Palpitations hypertension Acute, or Chronic, or Acute on Chronic? @ -Acute Uncomplicated (without systemic symptoms) or Complicated (systemic symptoms)? @ -Complicated Side effects of treatment? @ -No Exacerbation, Progression, or Severe Exacerbation? @ -No Poses a threat to life or bodily function? How? (Chest pain, USA, DC, pneumonia, PE, COPD, DKA, ARF, appy, cholecystitis, CVA, Diverticulitis, Homicidal, Suicidal, threat to staff... and all critical care pts) @ -No - Lab Data Result diagrams: 02/11/25 23:55 02/11/25 23:55 Lab Results 02/11/25 02/11/25 02/11/25 Range/Units 23:55 23:55 23:55 WBC 5.01 (4.50-10.00) 10*3/uL RBC 4.88 (4.10-5.20) 10*6/uL Hgb 13.7 (12.0-15.0) g/dL Hct 42.2 (37.2-46.3) % MCV 86.5 (80.0-97.0) fL MCH 28.1 (27.0-32.0) pg MCHC 32.5 (32.0-37.0) g/dL Plt Count 188 (140-440) 10*3/uL MPV 9.3 L (9.5-12.2) fL Immature Gran % (Auto) 0.2 % Neutrophils % 47.7 % Lymphocytes % 40.3 % Monocytes % 8.0 % Eosinophils % 3.0 % Basophils % 0.8 % Immature Gran # 0.01 (0.00-0.04) 10*3/uL Neutrophils # 2.39 (1.80-7.70) 10*3/uL Lymphocytes # 2.02 (0.90-5.00) 10*3/uL Monocytes # 0.40 (0.20-1.00) 10*3/uL Eosinophils # 0.15 (0.04-0.35) 10*3/uL Basophils # 0.04 (0.00-0.10) 10*3/uL Sodium 138 (137-145) mmol/L Potassium 4.2 (3.5-5.1) mmol/L Chloride 103 (98-107) mmol/L Carbon Dioxide 27 (22-30) mmol/L Anion Gap 8 mmol/L BUN 20 H (7-17) mg/dL Creatinine 0.72 (0.52-1.04) mg/dL Est GFR (CKD-EPI)AfAm >90 (>60 ml/min/1.73 sqM) Est GFR (CKD-EPI)NonAf 81 (>60 ml/min/1.73 sqM) Glucose 93 (74-99) mg/dL Calcium 10.2 (8.4-10.2) mg/dL Magnesium 2.1 (1.6-2.3) mg/dL Total Bilirubin 0.5 (0.2-1.3) mg/dL AST 33 (14-36) U/L ALT 26 (4-34) U/L Alkaline Phosphatase 47 (38-126) U/L Troponin I 0.016 (0.000-0.034) ng/mL Total Protein 7.4 (6.3-8.2) g/dL Albumin 4.6 (3.5-5.0) g/dL Disposition Clinical Impression: Hypertension, Heart palpitations, PVCs (premature ventricular contractions) Disposition: HOME SELF-CARE Condition: Stable Instructions (If sedation given, give patient instructions): Hypertension (ED) Additional Instructions: Please return to the Emergency Department if symptoms worsen or any other concerns. Is patient prescribed a controlled substance at d/c from ED?: No Referrals: Hola Renteria MD [Primary Care Provider] - 1-2 days Time of Disposition: 01:17
[2025-02-12 00:31] LABS: Basophils # (A) 0.04 10*3/uL (0.00-0.10); Basophils % (A) 0.8 %; Eosinophils # (A) 0.15 10*3/uL (0.04-0.35); Eosinophils % (A) 3.0 %; HCT 42.2 % (37.2-46.3); HGB 13.7 g/dL (12.0-15.0); Lymphocytes # (A) 2.02 10*3/uL (0.90-5.00); Lymphocytes % (A) 40.3 %; MCH 28.1 pg (27.0-32.0); MCHC 32.5 g/dL (32.0-37.0); MCV 86.5 fL (80.0-97.0); Monocytes # (A) 0.40 10*3/uL (0.20-1.00); Monocytes % (A) 8.0 %; Neutrophils # (A) 2.39 10*3/uL (1.80-7.70); Neutrophils % (A) 47.7 %; Platelet Count 188 10*3/uL (140-440); RBC 4.88 10*6/uL (4.10-5.20); RDW 13.0 % (11.5-14.5); WBC 5.01 10*3/uL (4.50-10.00)
[2025-02-12] MEDS: SODIUM CHLORIDE 0.9% 500 ML 500 ML IV STA (00:35)
[2025-02-12 00:37] VITALS: BP 148/95; PULSE 57
[2025-02-12] MEDS: KETOROLAC 15 MG/ML 1 ML VIAL IVP STA (00:39)
[2025-02-12] MEDS: METOCLOPRAMIDE 5 MG/ML 2 ML VIAL IVP STA (00:40)
[2025-02-12 00:51] LABS: ALT 26 U/L (4-34); AST 33 U/L (14-36); African American GFR (CKD) >90 (>60 ml/min/1.73 sqM); Albumin 4.6 g/dL (3.5-5.0); Alkaline Phosphatase 47 U/L (38-126); Anion Gap 8 mmol/L; Blood Urea Nitrogen 20 mg/dL (7-17); Calcium 10.2 mg/dL (8.4-10.2); Carbon Dioxide 27 mmol/L (22-30); Chloride 103 mmol/L (98-107); Glucose 93 mg/dL (74-99); Magnesium 2.1 mg/dL (1.6-2.3); Non-African American GFR(CKD) 81 (>60 ml/min/1.73 sqM); Potassium 4.2 mmol/L (3.5-5.1); Sodium 138 mmol/L (137-145); Total Protein 7.4 g/dL (6.3-8.2)
== END 2025-02-12 01:51 | disposition home or self-care (01) ==
LOC: EC 23:31
DX: I11.9 Hypertensive heart disease without heart failure (principal); I49.3 Ventricular premature depolarization; I25.10 Atherosclerotic heart disease of native coronary artery without angina pectoris
CPT/HCPCS: 36415; 80053; 83735; 84484; 85025; 93005; 96360; 99283